=== PATIENT | female | born 1970 | race Caucasian/White ===

== ENCOUNTER 2020-06-25 11:13 | Observation (INO) | payer OTHER ==
--- NOTE | 2020-06-25 11:40 | EDM.PDOC ---
ED HPI GENERAL MEDICAL PROBLEM - General Chief Complaint: General Stated Complaint: WEAKNESS/DIZZY/LOSS OF VISION Time Seen by Provider: 06/25/20 11:18 Source of Information: Reports: Patient History Limitations: Reports: No Limitations - History of Present Illness INITIAL COMMENTS - FREE TEXT/NARRATIVE: HISTORY AND PHYSICAL: History of present illness: Patient is a 49-year-old female who presents to the emergency room with complaints of weakness, episodes where she feels a syncopal event coming on and generally feeling unwell over the past 2 days. She states she has had 3 syncopal events where she feels very dizzy and weak, her vision starts to "go out" and she is able to let her self down to the ground where she passes out briefly. Denies any head, neck, back or extremity pain. Patient denies any fever, chills, headache, syncope or near syncope. Denies any chest pain, back pain, shortness of breath or cough. Denies any abdominal pain, nausea, vomiting, diarrhea, constipation or dysuria. Has not noted any blood in urine or stool. No chance of , hysterectomy. Patient has been eating and drinking appropriately. Review of systems: As per history of present illness and below otherwise all systems reviewed and negative. Past medical history: As per history of present illness and as reviewed below otherwise noncontributory. Surgical history: As per history of present illness and as reviewed below otherwise noncontributory. Social history: See social history for further information Family history: As per history of present illness and as reviewed below otherwise noncontributory. Physical exam: General: Well developed and well nourished 49 year old female. Alert and orientated x 3. Nontoxic in appearance and in no acute distress. Vital signs are stable and have been reviewed by me. Nursing notes were reviewed. HEENT: Atraumatic, normocephalic, pupils equal and reactive bilaterally, negative for conjunctival pallor or scleral icterus, mucous membranes moist, TMs normal bilaterally, throat clear, neck supple, nontender, trachea midline. No drooling or trismus noted. No meningeal signs. No hot potato voice noted. Lungs: Clear to auscultation, breath sounds equal bilaterally, chest nontender. Normal work of breathing, no accessory muscles used. Heart: S1S2, regular rate and rhythm without overt murmur Abdomen: Soft, nondistended, nontender. Negative for masses or hepatosplenomegaly. Negative for costovertebral tenderness. Skin: Diaphoretic, pale, but intact and warm. No lesions or rashes noted. Hematologic: No petechiae or purpra. Mucosa appropriate color and normal nail bed color and refill. Extremities: Atraumatic, moves all extremities per self without difficulty or deficits, negative for cords or calf pain. Neurovascular unremarkable. Neuro: Awake, alert, oriented. Cranial nerves II through XII unremarkable. Cerebellum unremarkable. Motor and sensory unremarkable throughout. Exam nonfocal. Psychiatric: Mood and affect are appropriate. Normal thought process. Answering questions appropriately. Notes: While nursing staff was assisting patient into a wheelchair, patient states she feels near syncope with movement. Blood glucose is WNL, vitals remain stable. EKG shows sinus rhythm with rate of 92, no previous EKGs available. Negative head CT and chest x-ray. Decreased potassium, 3.1. Appears slightly dehydrated. Slightly elevated Lipase, 553. Patient does have an elevated d- dimer, PE rule out chest has been ordered. Orthostatic vital signs show no drop; remains slightly elevated. Denies any headache. CT chest shows no acute PE. Areas of minimal atelectasis versus scarring in the lungs. No consolidation. There is a 4 mm micro nodule in the left lower lobe. Pronounced fatty infiltration of the liver. Patient states she still feels general weakness and being unwell, will admit her for observation admission with telemetry. Dr. Thakkar was consulted on this case. She is agreeable to adm itting her for further care and management. Diagnostics: CBC, CMP, UA, Troponin, EKG, CXR, COVID, Head CT Therapeutics: IV fluids, K-Dur Impression: Syncope Hypokalemia Dehydration Plan: Observation admission to Med/Surg with telemetry Definitive disposition and diagnosis as appropriate pending reevaluation and review of above. Back Pain Score (Numeric/FACES): 5 - Related Data Allergies Allergy/AdvReac Type Severity Reaction Status Date / Time morphine Allergy Other Verified 06/25/20 16:50 Home Meds: Home Meds . [No Known Home Meds] 02/24/16 [History] Past Medical History - Past Surgical History HEENT Surgical History: Reports: Adenoidectomy, Tonsillectomy GI Surgical History: Reports: Cholecystectomy Other GI Surgeries/Procedures: gastric by pass Female Surgical History: Reports: Hysterectomy Social & Family History - Family History Family Medical History: Noncontributory ED ROS GENERAL - Review of Systems Review Of Systems: Comprehensive ROS is negative, except as noted in HPI. ED EXAM, GENERAL - Physical Exam Exam: See Below (See dictation) Course - Vital Signs Last Recorded V/S: Last Vital Signs Temp 98 F 06/25/20 20:00 Pulse 88 06/25/20 20:00 Resp 16 06/25/20 20:00 BP 130/80 06/25/20 21:02 Pulse Ox 97 06/25/20 20:00 Orthostatic Blood Pressure [ 162/108 Standing] Orthostatic Blood Pressure [ 142/100 Sitting] Orthostatic Blood Pressure [ 150/100 Supine] - Orders/Labs/Meds Orders: Active Orders 24 hr Category Date Time Status Admission Status [Patient Status] [ADT] Stat ADT 06/25/20 14:44 Active Blood Glucose Check, Bedside [RC] ONETIME Care 06/25/20 11:49 Active Cardiac Monitoring [RC] . DIRECTED Care 06/25/20 11:49 Active EKG Documentation Completion [RC] STAT Care 06/25/20 11:49 Active Sodium Chloride 0.9% [Saline Flush] Med 06/25/20 11:49 Active 10 ml FLUSH ASDIRECTED PRN Sodium Chloride 0.9% [Saline Flush] Med 06/25/20 11:49 Active 2.5 ml FLUSH ASDIRECTED PRN Saline Lock Insert [OM.PC] Stat Oth 06/25/20 11:49 Ordered Medication Orders Albuterol/Ipratropium (Duoneb 3.0-0.5 Mg/3 Ml) 3 ml NEB Q4HRRT PRN PRN Reason: Shortness Of Breath/wheezing Lactated Ringer's (Ringers, Lactated) 1,000 mls @ 125 mls/hr IV ASDIRECTED MARGARITO Last Admin: 06/25/20 21:09 Dose: 125 mls/hr Documented by: SHIRLEY Pantoprazole Sodium 40 mg/ (Sodium Chloride) 10 mls @ 300 mls/hr IV DAILY MARGARITO Ketorolac Tromethamine (Toradol) 15 mg IVPUSH Q6H PRN PRN Reason: Pain Stop: 06/30/20 18:21 Last Admin: 06/25/20 18:55 Dose: 15 mg Documented by: GIDEON Ondansetron HCl (Zofran) 4 mg IVPUSH Q4H PRN PRN Reason: Nausea/Vomiting Sodium Chloride (Saline Flush) 10 ml FLUSH ASDIRECTED PRN PRN Reason: Keep Vein Open Last Admin: 06/25/20 12:05 Dose: 10 ml Documented by: DIAMANTE Sodium Chloride (Saline Flush) 2.5 ml FLUSH ASDIRECTED PRN PRN Reason: Keep Vein Open Last Admin: 06/25/20 12:05 Dose: 2.5 ml Documented by: DIAMANTE Labs: Laboratory Tests 06/25/20 06/25/20 06/25/20 Range/Units 11:06 11:06 11:51 WBC 6.25 (4.0-11.0) K/uL RBC 4.36 (4.30-5.90) M/uL Hgb 14.8 (12.0-16.0) g/dL Hct 44.1 (36.0-46.0) % MCV 101.1 H (80.0-98.0) fL MCH 33.9 H (27.0-32.0) pg MCHC 33.6 (31.0-37.0) g/dL RDW Std Deviation 50.2 (28.0-62.0) fl RDW Coeff of Manish 13 (11.0-15.0) % Plt Count 207 (150-400) K/uL MPV 10.80 (7.40-12.00) fL Neut % (Auto) 75.1 (48.0-80.0) % Lymph % (Auto) 14.2 L (16.0-40.0) % [place] % (Auto) 9.4 (0.0-15.0) % Eos % (Auto) 0.8 (0.0-7.0) % Baso % (Auto) 0.5 (0.0-1.5) % Neut # (Auto) 4.7 (1.4-5.7) K/uL Lymph # (Auto) 0.9 (0.6-2.4) K/uL [place] # (Auto) 0.6 (0.0-0.8) K/uL Eos # (Auto) 0.1 (0.0-0.7) K/uL Baso # (Auto) 0.0 (0.0-0.1) K/uL Nucleated RBC % 0.0 /100WBC Nucleated RBCs # 0 K/uL D-Dimer, Quantitative (0.0-0.50) mg/L FEU Sodium 135 L (136-145) mmol/L Potassium 3.1 L (3.5-5.1) mmol/L Chloride 95 L (98-107) mmol/L Carbon Dioxide 27.7 (21.0-32.0) mmol/L BUN 7 (7.0-18.0) mg/dL Creatinine 1.2 H (0.6-1.0) mg/dL Est Cr Clr Drug Dosing 52.15 mL/min Estimated GFR (MDRD) 48.2 ml/min Glucose 135 H (74-106) mg/dL POC Glucose 137 H (60-110) mg/dL Calcium 9.7 (8.5-10.1) mg/dL Total Bilirubin 1.2 H (0.2-1.0) mg/dL AST 166 H (15-37) IU/L ALT 187 H (14-63) IU/L Alkaline Phosphatase 120 H (46-116) U/L Troponin I < 0.050 (0.000-0.056) ng/mL Total Protein 8.7 H (6.4-8.2) g/dL Albumin 4.6 (3.4-5.0) g/dL Globulin 4.1 H (2.6-4.0) g/dL Albumin/Globulin Ratio 1.1 (0.9-1.6) Lipase 553 H (73-393) U/L SARS-CoV-2 RNA (GAYLA) (NEGATIVE) 06/25/20 06/25/20 Range/Units 12:03 13:00 WBC (4.0-11.0) K/uL RBC (4.30-5.90) M/uL Hgb (12.0-16.0) g/dL Hct (36.0-46.0) % MCV (80.0-98.0) fL MCH (27.0-32.0) pg MCHC (31.0-37.0) g/dL RDW Std Deviation (28.0-62.0) fl RDW Coeff of Manish (11.0-15.0) % Plt Count (150-400) K/uL MPV (7.40-12.00) fL Neut % (Auto) (48.0-80.0) % Lymph % (Auto) (16.0-40.0) % [place] % (Auto) (0.0-15.0) % Eos % (Auto) (0.0-7.0) % Baso % (Auto) (0.0-1.5) % Neut # (Auto) (1.4-5.7) K/uL Lymph # (Auto) (0.6-2.4) K/uL [place] # (Auto) (0.0-0.8) K/uL Eos # (Auto) (0.0-0.7) K/uL Baso # (Auto) (0.0-0.1) K/uL Nucleated RBC % /100WBC Nucleated RBCs # K/uL D-Dimer, Quantitative 1.05 H (0.0-0.50) mg/L FEU Sodium (136-145) mmol/L Potassium (3.5-5.1) mmol/L Chloride (98-107) mmol/L Carbon Dioxide (21.0-32.0) mmol/L BUN (7.0-18.0) mg/dL Creatinine (0.6-1.0) mg/dL Est Cr Clr Drug Dosing mL/min Estimated GFR (MDRD) ml/min Glucose (74-106) mg/dL POC Glucose (60-110) mg/dL Calcium (8.5-10.1) mg/dL Total Bilirubin (0.2-1.0) mg/dL AST (15-37) IU/L ALT (14-63) IU/L Alkaline Phosphatase (46-116) U/L Troponin I (0.000-0.056) ng/mL Total Protein (6.4-8.2) g/dL Albumin (3.4-5.0) g/dL Globulin (2.6-4.0) g/dL Albumin/Globulin Ratio (0.9-1.6) Lipase (73-393) U/L SARS-CoV-2 RNA (GAYLA) NEGATIVE (NEGATIVE) Meds: Medications Generic Name Dose Route Start Last Admin Trade Name Freq PRN Reason Stop Dose Admin Albuterol/Ipratropium 3 ml 06/25/20 15:36 Duoneb 3.0-0.5 Mg/3 Ml NEB Q4HRRT PRN Shortness Of Breath/wheezing Lactated Ringer's 1,000 mls @ 125 mls/hr 06/25/20 15:45 06/25/20 21:09 Ringers, Lactated IV 125 mls/hr ASDIRECTED MARGARITO Administration Pantoprazole Sodium 40 mg/ 10 mls @ 300 mls/hr 06/26/20 09:00 Sodium Chloride IV DAILY MARGARITO Ketorolac Tromethamine 15 mg 06/25/20 18:21 06/25/20 18:55 Toradol IVPUSH 06/30/20 18:21 15 mg Q6H PRN Administration Pain Ondansetron HCl 4 mg 06/25/20 18:01 Zofran IVPUSH Q4H PRN Nausea/Vomiting Sodium Chloride 10 ml 06/25/20 11:49 06/25/20 12:05 Saline Flush FLUSH 10 ml ASDIRECTED PRN Administration Keep Vein Open Sodium Chloride 2.5 ml 06/25/20 11:49 06/25/20 12:05 Saline Flush FLUSH 2.5 ml ASDIRECTED PRN Administration Keep Vein Open Discontinued Medications Generic Name Dose Route Start Last Admin Trade Name Freq PRN Reason Stop Dose Admin Acetaminophen 650 mg 06/25/20 15:36 Tylenol PO Q4H PRN Pain (Mild 1-3)/fever Sodium Chloride 1,000 mls @ 999 mls/hr 06/25/20 11:48 06/25/20 12:05 Normal Saline IV 06/25/20 12:48 999 mls/hr STAT ONE Administration Sodium Chloride 1,000 mls @ 150 mls/hr 06/25/20 13:59 06/25/20 15:19 Normal Saline IV 06/25/20 20:38 150 mls/hr STAT ONE Administration Iopamidol 70 ml 06/25/20 14:09 06/25/20 14:10 Isovue-370 (76%) IVPUSH 06/25/20 14:10 70 ml ONETIME ONE Administration Morphine Sulfate 1 mg 06/25/20 17:38 Morphine IVPUSH Q6H PRN Pain Potassium Chloride 40 meq 06/25/20 14:55 06/25/20 15:18 Klor-Con M20 PO 06/25/20 14:56 40 meq ONETIME ONE Administration Departure - Departure Time of Disposition: 14:54 Disposition: Refer to Observation Clinical Impression: Hypokalemia, Dehydration Syncope Qualifiers: Syncope type: unspecified Qualified Code(s): R55 - Syncope and collapse - Discharge Information Sepsis Event Note (ED) - Focused Exam Vital Signs: Vital Signs Temp Pulse Resp BP Pulse Ox 06/25/20 14:44 99 150/100 H 99 06/25/20 13:30 107 H 100 06/25/20 12:07 97.0 F 111 H 20 172/110 H 99 06/25/20 11:42 74 124/90 99 - My Orders Last 24 Hours: My Active Orders 06/25/20 11:49 Blood Glucose Check, Bedside [RC] ONETIME Cardiac Monitoring [RC] . DIRECTED EKG Documentation Completion [RC] STAT Sodium Chloride 0.9% [Saline Flush] 10 ml FLUSH ASDIRECTED PRN Sodium Chloride 0.9% [Saline Flush] 2.5 ml FLUSH ASDIRECTED PRN Saline Lock Insert [OM.PC] Stat 06/25/20 14:44 Admission Status [Patient Status] [ADT] Stat - Assessment/Plan Last 24 Hours: My Active Orders 06/25/20 11:49 Blood Glucose Check, Bedside [RC] ONETIME Cardiac Monitoring [RC] . DIRECTED EKG Documentation Completion [RC] STAT Sodium Chloride 0.9% [Saline Flush] 10 ml FLUSH ASDIRECTED PRN Sodium Chloride 0.9% [Saline Flush] 2.5 ml FLUSH ASDIRECTED PRN Saline Lock Insert [OM.PC] Stat 06/25/20 14:44 Admission Status [Patient Status] [ADT] Stat
[2020-06-25] MEDS ORDERED: Sodium Chloride 0.9% 1,000 ML IV ONE ×2 (11:48→13:59)
[2020-06-25] MEDS ORDERED: Sodium Chloride 0.9% 10 ML Syringe FLUSH PRN (11:49)
[2020-06-25] MEDS ORDERED: Sodium Chloride 0.9% 2.5 ML Syringe FLUSH PRN (11:49)
--- NOTE | 2020-06-25 12:13 | PCM.SN.2 ---
EKG INTERPRETATION EKG Date: 06/25/20 Time: 11:45 Rhythm: NSR Rate (Beats/Min): 92 [place]: Normal P-Wave: Present QRS: Normal ST-T: Normal QT: Normal
[2020-06-25 12:37] LABS: BLOOD UREA NITROGEN,BUN 7 mg/dL (7.0-18.0); CARBON DIOXIDE,CO2 27.7 mmol/L (21.0-32.0); CHLORIDE,CL 95 mmol/L (98-107); GLUCOSE RANDOM 135 mg/dL (74-106); LIPASE 553 U/L (73-393); POTASSIUM,K 3.1 mmol/L (3.5-5.1); SODIUM,NA 135 mmol/L (136-145)
--- NOTE | 2020-06-25 12:58 | CR ---
INDICATION: Syncope TECHNIQUE: Chest 1 view. COMPARISON: None FINDINGS: Cardiovascular and mediastinum: Heart size and vasculature are normal in caliber and appearance. Mediastinum is within normal limits. Lungs and pleural space: Lungs are clear. No pleural effusion. No pneumothorax. Bones and soft tissues: No acute findings. IMPRESSION: No acute pulmonary abnormality. Dictated by Laly Lopez MD @ Jun 25 2020 12:55PM Signed by Dr. Laly Lopez @ Jun 25 2020 12:56PM
--- NOTE | 2020-06-25 13:00 | CT ---
INDICATION: Syncope, dizziness, vision changes. TECHNIQUE: CT Head without contrast. COMPARISON: None FINDINGS: Ventricles and sulci are normal in size and configuration. No extra axial collection. No acute intracranial hemorrhage. No mass effect or edema. No CT evidence of acute, large territorial infarction. Visualized paranasal sinuses and mastoid air cells are well aerated. Calvarium is unremarkable. IMPRESSION: No acute intracranial hemorrhage or mass effect. Please note that all CT scans at this facility use dose modulation, iterative reconstruction, and/or weight-based dosing when appropriate to reduce radiation dose to as low as reasonably achievable. Dictated by Laly Lopez MD @ Jun 25 2020 12:56PM Signed by Dr. Laly Lopez @ Jun 25 2020 12:58PM
[2020-06-25] MEDS ORDERED: Iopamidol 755 Mg/ML 100 ML Bottle IVPUSH ONE (14:09)
--- NOTE | 2020-06-25 14:34 | CT ---
HISTORY: Elevated D-dimer, syncope. TECHNIQUE: Intravenous contrast enhanced CT of the chest. 70 mL of Isovue-370 intravenous contrast administered. COMPARISON: Chest radiograph 06/25/2020. FINDINGS: There is no thoracic aortic aneurysm or dissection. There is no acute pulmonary embolism. No pericardial effusion. No enlarged mediastinal or hilar lymph nodes. - Areas of minor atelectasis and/or scarring within the lungs. No consolidation. 4 mm nodule within the left lateral costophrenic angle on axial image #78 of series 402. There is no pleural effusion or pneumothorax. - Pronounced fatty infiltration of the liver. Changes of gastric bypass. - Mild degenerative changes of the spine. IMPRESSION: 1. No acute pulmonary embolism. 2. Areas of minimal atelectasis versus scarring within the lungs. No consolidation. 3. 4 mm micro nodule left lower lobe. If the patient is high risk, consider a [address] to determine stability. 4. Pronounced fatty infiltration of the liver. 5. Changes of prior gastric bypass. Dictated by Jose Smith MD @ 06/25/2020 2:32:56 PM Please note that all CT scans at this facility use dose modulation, iterative reconstruction, and/or weight-based dosing when appropriate to reduce radiation dose to as low as reasonably achievable. Dictated by: Jose Smith MD @ 06/25/2020 14:33:09 (Electronically Signed)
[2020-06-25] MEDS ORDERED: Potassium Chloride 20 MEQ Tab.ER PO ONE (14:55)
[2020-06-25] MEDS ORDERED: Acetaminophen 325 MG Tab PO PRN (15:36)
[2020-06-25] MEDS ORDERED: Albuterol/Ipratropium 3.0-0.5 MG/3 ML Neb Soln NEB PRN (15:36)
--- NOTE | 2020-06-25 15:38 | PCM.HP.2 ---
H&P History of Present Illness - General Date of Service: 06/25/20 Admit Problem/Dx: Admission Diagnosis/Problem Admission Diagnosis/Problem Syncope - History of Present Illness Initial Comments - Free Text/Narative: Patient is a 49-year-old female who presents to the emergency room with complaints of weakness, syncopal episodes for past 2 days. She states she has had 3 syncopal events where she felt very dizzy and weak, her vision starts to black out and she is able to let her self down to the ground where she passes out briefly for few minutes Denies any head, neck, back or extremity pain. Patient denies any fever, chills, headache, syncope or near syncope. Denies any chest pain, back pain, shortness of breath or cough. Has not noted any blood in urine or stool. No chance of , hysterectomy. Shr states she hasnt been eating properly due to Nausea. Work up in ER reveled: Negative head CT and chest x-ray, normal troponin, EKG unremarkable, Decreased potassium, 3.1. Slightly elevated Lipase, 553, abnormal LFTs,. Patient does have an elevated d-dimer, CT chest shows no acute PE. Areas of minimal atelectasis versus scarring in the lungs. No consolidation. There is a 4 mm micro nodule in the left lower lobe. Pronounced fatty infiltration of the liver. Patient received IV fluids and continued to feel weak so was admitted for further management. - Related Data Allergies/Adverse Reactions: Allergies Allergy/AdvReac Type Severity Reaction Status Date / Time morphine Allergy Other Verified 06/25/20 16:50 Home Medications: Home Meds . [No Known Home Meds] 02/24/16 [History] Past Medical History - Infectious Disease History Infectious Disease History: Reports: Chicken Pox - Past Surgical History HEENT Surgical History: Reports: Adenoidectomy, Tonsillectomy GI Surgical History: Reports: Cholecystectomy Other GI Surgeries/Procedures: gastric by pass Female Surgical History: Reports: Hysterectomy Social & Family History - Family History Family Medical History: Noncontributory - Tobacco Use Smoking Status *Q: Never Smoker - Recreational Drug Use Recreational Drug Use: No H&P Review of Systems - Review of Systems: Review Of Systems: See Below General: Reports: Malaise, Weakness, Fatigue. Denies: Fever, Chills HEENT: Reports: Dysphasia, Ear Pain. Denies: Eye Pain Pulmonary: Reports: Shortness of Breath, Wheezing Cardiovascular: Reports: Chest Pain, Palpitations, Dyspnea on Exertion, Lighthea dedness, Syncope Gastrointestinal: Reports: Anorexia. Denies: Abdominal Pain, Hematemesis, Hematochezia, Nausea, Vomiting Genitourinary: Denies: Frequency, Burning, Pain Musculoskeletal: Denies: Shoulder Pain, Arm Pain, Back Pain Exam - Exam Exam: See Below - Vital Signs Vital Signs: Last Vital Signs Temp 36.1 C 06/25/20 12:07 Pulse 99 06/25/20 14:44 Resp 20 06/25/20 12:07 BP 150/100 H 06/25/20 14:44 Pulse Ox 99 06/25/20 14:44 Orthostatic Blood Pressure [ 162/108 Standing] Orthostatic Blood Pressure [ 142/100 Sitting] Orthostatic Blood Pressure [ 150/100 Supine] Weight: 72.575 kg - Exam General: Alert, Oriented HEENT: Conjunctiva Clear Neck: Supple, Trachea Midline Lungs: Clear to Auscultation, Normal Respiratory Effort Cardiovascular: Regular Rate, Regular Rhythm GI/Abdominal Exam: Normal Bowel Sounds, Soft, Non-Tender - Patient Data Lab Results Last 24 hrs: Laboratory Results - last 24 hr 06/25/20 06/25/20 06/25/20 Range/Units 11:06 11:06 11:51 WBC 6.25 (4.0-11.0) K/uL RBC 4.36 (4.30-5.90) M/uL Hgb 14.8 (12.0-16.0) g/dL Hct 44.1 (36.0-46.0) % MCV 101.1 H (80.0-98.0) fL MCH 33.9 H (27.0-32.0) pg MCHC 33.6 (31.0-37.0) g/dL RDW Std Deviation 50.2 (28.0-62.0) fl RDW Coeff of Manish 13 (11.0-15.0) % Plt Count 207 (150-400) K/uL MPV 10.80 (7.40-12.00) fL Neut % (Auto) 75.1 (48.0-80.0) % Lymph % (Auto) 14.2 L (16.0-40.0) % [place] % (Auto) 9.4 (0.0-15.0) % Eos % (Auto) 0.8 (0.0-7.0) % Baso % (Auto) 0.5 (0.0-1.5) % Neut # (Auto) 4.7 (1.4-5.7) K/uL Lymph # (Auto) 0.9 (0.6-2.4) K/uL [place] # (Auto) 0.6 (0.0-0.8) K/uL Eos # (Auto) 0.1 (0.0-0.7) K/uL Baso # (Auto) 0.0 (0.0-0.1) K/uL Nucleated RBC % 0.0 /100WBC Nucleated RBCs # 0 K/uL D-Dimer, Quantitative (0.0-0.50) mg/L FEU Sodium 135 L (136-145) mmol/L Potassium 3.1 L (3.5-5.1) mmol/L Chloride 95 L (98-107) mmol/L Carbon Dioxide 27.7 (21.0-32.0) mmol/L BUN 7 (7.0-18.0) mg/dL Creatinine 1.2 H (0.6-1.0) mg/dL Est Cr Clr Drug Dosing 52.15 mL/min Estimated GFR (MDRD) 48.2 ml/min Glucose 135 H (74-106) mg/dL POC Glucose 137 H (60-110) mg/dL Calcium 9.7 (8.5-10.1) mg/dL Total Bilirubin 1.2 H (0.2-1.0) mg/dL AST 166 H (15-37) IU/L ALT 187 H (14-63) IU/L Alkaline Phosphatase 120 H (46-116) U/L Troponin I < 0.050 (0.000-0.056) ng/mL Total Protein 8.7 H (6.4-8.2) g/dL Albumin 4.6 (3.4-5.0) g/dL Globulin 4.1 H (2.6-4.0) g/dL Albumin/Globulin Ratio 1.1 (0.9-1.6) Lipase 553 H (73-393) U/L SARS-CoV-2 RNA (GAYLA) (NEGATIVE) 06/25/20 06/25/20 Range/Units 12:03 13:00 WBC (4.0-11.0) K/uL RBC (4.30-5.90) M/uL Hgb (12.0-16.0) g/dL Hct (36.0-46.0) % MCV (80.0-98.0) fL MCH (27.0-32.0) pg MCHC (31.0-37.0) g/dL RDW Std Deviation (28.0-62.0) fl RDW Coeff of Manish (11.0-15.0) % Plt Count (150-400) K/uL MPV (7.40-12.00) fL Neut % (Auto) (48.0-80.0) % Lymph % (Auto) (16.0-40.0) % [place] % (Auto) (0.0-15.0) % Eos % (Auto) (0.0-7.0) % Baso % (Auto) (0.0-1.5) % Neut # (Auto) (1.4-5.7) K/uL Lymph # (Auto) (0.6-2.4) K/uL [place] # (Auto) (0.0-0.8) K/uL Eos # (Auto) (0.0-0.7) K/uL Baso # (Auto) (0.0-0.1) K/uL Nucleated RBC % /100WBC Nucleated RBCs # K/uL D-Dimer, Quantitative 1.05 H (0.0-0.50) mg/L FEU Sodium (136-145) mmol/L Potassium (3.5-5.1) mmol/L Chloride (98-107) mmol/L Carbon Dioxide (21.0-32.0) mmol/L BUN (7.0-18.0) mg/dL Creatinine (0.6-1.0) mg/dL Est Cr Clr Drug Dosing mL/min Estimated GFR (MDRD) ml/min Glucose (74-106) mg/dL POC Glucose (60-110) mg/dL Calcium (8.5-10.1) mg/dL Total Bilirubin (0.2-1.0) mg/dL AST (15-37) IU/L ALT (14-63) IU/L Alkaline Phosphatase (46-116) U/L Troponin I (0.000-0.056) ng/mL Total Protein (6.4-8.2) g/dL Albumin (3.4-5.0) g/dL Globulin (2.6-4.0) g/dL Albumin/Globulin Ratio (0.9-1.6) Lipase (73-393) U/L SARS-CoV-2 RNA (GAYLA) NEGATIVE (NEGATIVE) Result Diagrams: 06/25/20 11:06 06/25/20 11:06 Sepsis Event Note - Evaluation Sepsis Screening Result: No Definite Risk - Focused Exam Vital Signs: Vital Signs Temp Pulse Resp BP Pulse Ox 06/25/20 14:44 99 150/100 H 99 06/25/20 13:30 107 H 100 06/25/20 12:07 36.1 C 111 H 20 172/110 H 99 06/25/20 11:42 74 124/90 99 - Problem List (1) Lung nodule SNOMED Code(s): 240012026 ICD Code: R91.1 - SOLITARY PULMONARY NODULE Status: Acute Current Visit: Yes (2) Hypokalemia SNOMED Code(s): 59702273 ICD Code: E87.6 - HYPOKALEMIA Status: Acute Current Visit: Yes (3) Syncope SNOMED Code(s): 730498987 ICD Code: R55 - SYNCOPE AND COLLAPSE Status: Acute Current Visit: Yes Qualifiers: Syncope type: unspecified Qualified Code(s): R55 - Syncope and collapse (4) Transaminitis SNOMED Code(s): 600408551, 128300353 ICD Code: R74.01 - ELEVATION OF LEVELS OF LIVER TRANSAMINASE LEVELS Status: Acute Current Visit: Yes Problem List Initiated/Reviewed/Updated: Yes Orders Last 24hrs: Active Orders 24 hr Category Date Time Status Admission Status [Patient Status] [ADT] Stat ADT 06/25/20 14:44 Active Ambulate [RC] ASDIRECTED Care 06/25/20 15:36 Ordered Antiembolic Devices [RC] PER UNIT ROUTINE Care 06/25/20 15:37 Ordered Blood Glucose Check, Bedside [RC] ONETIME Care 06/25/20 11:49 Active Cardiac Monitoring [RC] . DIRECTED Care 06/25/20 11:49 Active EKG Documentation Completion [RC] STAT Care 06/25/20 11:49 Active Oxygen Therapy [RC] PRN Care 06/25/20 15:36 Ordered RT Aerosol Therapy [RC] ASDIRECTED Care 06/25/20 15:37 Ordered VTE/DVT Education [RC] PER UNIT ROUTINE Care 06/25/20 15:36 Ordered Vital Signs [RC] Q4H Care 06/25/20 15:36 Ordered TROPONIN I [CHEM] Routine Lab 06/25/20 15:37 Ordered UA RFX [place] AND CULT IF INDIC [URIN] Stat Lab 06/25/20 11:49 Ordered Acetaminophen [TylenoL] Med 06/25/20 15:36 Ordered 650 mg PO Q4H PRN Albuterol/Ipratropium [DuoNeb 3.0-0.5 MG/3 ML] Med 06/25/20 15:36 Ordered 3 ml NEB Q4HRRT PRN Lactated Ringers @ 125 MLS/HR(1000ml) Med 06/25/20 15:45 Ordered Lactated Ringers [Ringers, Lactated] 1,000 ml IV ASDIRECTED Sodium Chloride 0.9% [Normal Saline] 1,000 ml Med 06/25/20 13:59 Active IV STAT Sodium Chloride 0.9% [Saline Flush] Med 06/25/20 11:49 Active 10 ml FLUSH ASDIRECTED PRN Sodium Chloride 0.9% [Saline Flush] Med 06/25/20 11:49 Active 2.5 ml FLUSH ASDIRECTED PRN Saline Lock Insert [OM.PC] Stat Oth 06/25/20 11:49 Ordered Sequential Compression Device [OM.PC] Per Unit Routine Oth 06/25/20 15:37 Ordered Resuscitation Status Routine Resus Stat 06/25/20 15:36 Ordered Medication Orders Acetaminophen (Tylenol) 650 mg PO Q4H PRN PRN Reason: Pain (Mild 1-3)/fever Albuterol/Ipratropium (Duoneb 3.0-0.5 Mg/3 Ml) 3 ml NEB Q4HRRT PRN PRN Reason: Shortness Of Breath/wheezing Sodium Chloride (Normal Saline) 1,000 mls @ 150 mls/hr IV STAT ONE Stop: 06/25/20 20:38 Last Admin: 06/25/20 15:19 Dose: 150 mls/hr Documented by: JAMISON Lactated Ringer's (Ringers, Lactated) 1,000 mls @ 125 mls/hr IV ASDIRECTED MARGARITO Sodium Chloride (Saline Flush) 10 ml FLUSH ASDIRECTED PRN PRN Reason: Keep Vein Open Last Admin: 06/25/20 12:05 Dose: 10 ml Documented by: DIAMANTE Sodium Chloride (Saline Flush) 2.5 ml FLUSH ASDIRECTED PRN PRN Reason: Keep Vein Open Last Admin: 06/25/20 12:05 Dose: 2.5 ml Documented by: DIAMANTE Assessment/Plan Comment:: 49 y/o F admitted for syncope, generalized weakness start ivf hydration keep npo for now secondary to n/v trend troponin duonebs as needed scd for dvt ppx monitor and replete electrolytes as needed
[2020-06-25] MEDS ORDERED: Morphine 2 MG/ML SYRINGE IVPUSH PRN (17:38)
[2020-06-25] MEDS ORDERED: Ondansetron 4 MG/2 ML SDV IVPUSH PRN (18:01)
[2020-06-25] MEDS: Ketorolac 15 MG/ML SDV IVPUSH PRN (18:55)
[2020-06-25] MEDS: Lactated Ringers 1,000 ML IV SCH (21:09)
[2020-06-26] MEDS: Lactated Ringers 1,000 ML IV SCH ×3 (04:54→22:39)
[2020-06-26] MEDS: Pantoprazole 40 MG in Sodium Chloride 0.9% 10 ML IV SCH (09:03)
[2020-06-26 11:05] LABS: BLOOD UREA NITROGEN,BUN 4 mg/dL (7.0-18.0); CARBON DIOXIDE,CO2 23.6 mmol/L (21.0-32.0); CHLORIDE,CL 100 mmol/L (98-107); GLUCOSE RANDOM 91 mg/dL (74-106); POTASSIUM,K 3.4 mmol/L (3.5-5.1); SODIUM,NA 136 mmol/L (136-145)
[2020-06-26] MEDS: Ketorolac 15 MG/ML SDV IVPUSH PRN ×2 (12:36→20:12)
[2020-06-26] MEDS ORDERED: Potassium Chloride Riders 40 MEQ in Premix Bag 1 BAG IV ONE ×2 (12:42→16:00)
[2020-06-26] MEDS ORDERED: Magnesium Sulfate/Water 4 GM in Premix Bag 1 BAG IV ONE (12:42)
--- NOTE | 2020-06-26 12:46 | PCM.PN ---
- General Info Date of Service: 06/26/20 Admission Dx/Problem (Free Text): Admission Diagnosis/Problem Admission Diagnosis/Problem Syncope Subjective Update: seen at bedside, says she was doing really well until this am when she felt like she will pass out while trying to get out of bed, tried eating, didn't tolerate - Review of Systems General: Reports: Weakness, Fatigue, Malaise. Denies: Fever, Chills Pulmonary: Denies: Shortness of Breath, Pleuritic Chest Pain Cardiovascular: Denies: Chest Pain, Palpitations, Dyspnea on Exertion Gastrointestinal: Reports: Nausea, Vomiting. Denies: Abdominal Pain, Constipation, Decreased Appetite, Diarrhea Genitourinary: Denies: Dysuria, Frequency, Burning, Pain Musculoskeletal: Denies: Neck Pain, Shoulder Pain, Arm Pain Skin: Denies: Cyanosis, Jaundice, Mottled - Patient Data Vitals - Most Recent: Last Vital Signs Temp 35.7 C L 06/26/20 11:45 Pulse 82 06/26/20 11:45 Resp 16 06/26/20 11:45 BP 147/96 H 06/26/20 11:45 Pulse Ox 97 06/26/20 11:45 Orthostatic Blood Pressure [ 162/108 Standing] Orthostatic Blood Pressure [ 142/100 Sitting] Orthostatic Blood Pressure [ 150/100 Supine] Weight - Most Recent: 72.575 kg I&O - Last 24 Hours: Intake & Output 06/25/20 06/26/20 06/26/20 22:59 06:59 14:59 Intake Total 25 Output Total 900 Balance -875 Lab Results Last 24 Hours: Laboratory Results - last 24 hr 06/25/20 06/25/20 06/25/20 Range/Units 11:51 12:03 13:00 WBC (4.0-11.0) K/uL RBC (4.30-5.90) M/uL Hgb (12.0-16.0) g/dL Hct (36.0-46.0) % MCV (80.0-98.0) fL MCH (27.0-32.0) pg MCHC (31.0-37.0) g/dL RDW Std Deviation (28.0-62.0) fl RDW Coeff of Manish (11.0-15.0) % Plt Count (150-400) K/uL MPV (7.40-12.00) fL Neut % (Auto) (48.0-80.0) % Lymph % (Auto) (16.0-40.0) % [place] % (Auto) (0.0-15.0) % Eos % (Auto) (0.0-7.0) % Baso % (Auto) (0.0-1.5) % Neut # (Auto) (1.4-5.7) K/uL Lymph # (Auto) (0.6-2.4) K/uL [place] # (Auto) (0.0-0.8) K/uL Eos # (Auto) (0.0-0.7) K/uL Baso # (Auto) (0.0-0.1) K/uL Nucleated RBC % /100WBC Nucleated RBCs # K/uL D-Dimer, Quantitative 1.05 H (0.0-0.50) mg/L FEU Sodium (136-145) mmol/L Potassium (3.5-5.1) mmol/L Chloride (98-107) mmol/L Carbon Dioxide (21.0-32.0) mmol/L BUN (7.0-18.0) mg/dL Creatinine (0.6-1.0) mg/dL Est Cr Clr Drug Dosing mL/min Estimated GFR (MDRD) ml/min Glucose (74-106) mg/dL POC Glucose 137 H (60-110) mg/dL Calcium (8.5-10.1) mg/dL Phosphorus (2.6-4.7) mg/dL Magnesium (1.8-2.4) mg/dL Total Bilirubin (0.2-1.0) mg/dL AST (15-37) IU/L ALT (14-63) IU/L Alkaline Phosphatase (46-116) U/L Troponin I (0.000-0.056) ng/mL Total Protein (6.4-8.2) g/dL Albumin (3.4-5.0) g/dL Globulin (2.6-4.0) g/dL Albumin/Globulin Ratio (0.9-1.6) Urine Color Urine Appearance Urine pH (5.0-8.0) Ur Specific [place] (1.001-1.035) Urine Protein (NEGATIVE) mg/dL Urine Glucose (UA) (NEGATIVE) mg/dL Urine Ketones (NEGATIVE) mg/dL Urine Occult Blood (NEGATIVE) Urine Nitrite (NEGATIVE) Urine Bilirubin (NEGATIVE) Urine Urobilinogen (<2.0) EU/dL Ur Leukocyte Esterase (NEGATIVE) SARS-CoV-2 RNA (GAYLA) NEGATIVE (NEGATIVE) 06/25/20 06/25/20 06/26/20 Range/Units 16:02 17:30 00:42 WBC (4.0-11.0) K/uL RBC (4.30-5.90) M/uL Hgb (12.0-16.0) g/dL Hct (36.0-46.0) % MCV (80.0-98.0) fL MCH (27.0-32.0) pg MCHC (31.0-37.0) g/dL RDW Std Deviation (28.0-62.0) fl RDW Coeff of Manish (11.0-15.0) % Plt Count (150-400) K/uL MPV (7.40-12.00) fL Neut % (Auto) (48.0-80.0) % Lymph % (Auto) (16.0-40.0) % [place] % (Auto) (0.0-15.0) % Eos % (Auto) (0.0-7.0) % Baso % (Auto) (0.0-1.5) % Neut # (Auto) (1.4-5.7) K/uL Lymph # (Auto) (0.6-2.4) K/uL [place] # (Auto) (0.0-0.8) K/uL Eos # (Auto) (0.0-0.7) K/uL Baso # (Auto) (0.0-0.1) K/uL Nucleated RBC % /100WBC Nucleated RBCs # K/uL D-Dimer, Quantitative (0.0-0.50) mg/L FEU Sodium (136-145) mmol/L Potassium (3.5-5.1) mmol/L Chloride (98-107) mmol/L Carbon Dioxide (21.0-32.0) mmol/L BUN (7.0-18.0) mg/dL Creatinine (0.6-1.0) mg/dL Est Cr Clr Drug Dosing mL/min Estimated GFR (MDRD) ml/min Glucose (74-106) mg/dL POC Glucose 84 (60-110) mg/dL Calcium (8.5-10.1) mg/dL Phosphorus (2.6-4.7) mg/dL Magnesium (1.8-2.4) mg/dL Total Bilirubin (0.2-1.0) mg/dL AST (15-37) IU/L ALT (14-63) IU/L Alkaline Phosphatase (46-116) U/L Troponin I < 0.050 (0.000-0.056) ng/mL Total Protein (6.4-8.2) g/dL Albumin (3.4-5.0) g/dL Globulin (2.6-4.0) g/dL Albumin/Globulin Ratio (0.9-1.6) Urine Color YELLOW Urine Appearance CLEAR Urine pH 8.5 H (5.0-8.0) Ur Specific [place] 1.015 (1.001-1.035) Urine Protein NEGATIVE (NEGATIVE) mg/dL Urine Glucose (UA) NEGATIVE (NEGATIVE) mg/dL Urine Ketones 15 H (NEGATIVE) mg/dL Urine Occult Blood NEGATIVE (NEGATIVE) Urine Nitrite NEGATIVE (NEGATIVE) Urine Bilirubin NEGATIVE (NEGATIVE) Urine Urobilinogen 0.2 (<2.0) EU/dL Ur Leukocyte Esterase NEGATIVE (NEGATIVE) SARS-CoV-2 RNA (GAYLA) (NEGATIVE) 06/26/20 06/26/20 06/26/20 Range/Units 06:21 10:35 10:35 WBC 3.79 L (4.0-11.0) K/uL RBC 3.83 L (4.30-5.90) M/uL Hgb 12.6 (12.0-16.0) g/dL Hct 38.8 (36.0-46.0) % MCV 101.3 H (80.0-98.0) fL MCH 32.9 H (27.0-32.0) pg MCHC 32.5 (31.0-37.0) g/dL RDW Std Deviation 49.2 (28.0-62.0) fl RDW Coeff of Manish 13 (11.0-15.0) % Plt Count 165 (150-400) K/uL MPV 10.50 (7.40-12.00) fL Neut % (Auto) 59.2 (48.0-80.0) % Lymph % (Auto) 27.4 (16.0-40.0) % [place] % (Auto) 10.0 (0.0-15.0) % Eos % (Auto) 2.9 (0.0-7.0) % Baso % (Auto) 0.5 (0.0-1.5) % Neut # (Auto) 2.2 (1.4-5.7) K/uL Lymph # (Auto) 1.0 (0.6-2.4) K/uL [place] # (Auto) 0.4 (0.0-0.8) K/uL Eos # (Auto) 0.1 (0.0-0.7) K/uL Baso # (Auto) 0.0 (0.0-0.1) K/uL Nucleated RBC % 0.0 /100WBC Nucleated RBCs # 0 K/uL D-Dimer, Quantitative (0.0-0.50) mg/L FEU Sodium 136 (136-145) mmol/L Potassium 3.4 L (3.5-5.1) mmol/L Chloride 100 (98-107) mmol/L Carbon Dioxide 23.6 (21.0-32.0) mmol/L BUN 4 L (7.0-18.0) mg/dL Creatinine 0.7 (0.6-1.0) mg/dL Est Cr Clr Drug Dosing 89.40 mL/min Estimated GFR (MDRD) > 60.0 ml/min Glucose 91 (74-106) mg/dL POC Glucose 92 (60-110) mg/dL Calcium 8.7 (8.5-10.1) mg/dL Phosphorus 2.9 (2.6-4.7) mg/dL Magnesium 1.3 L (1.8-2.4) mg/dL Total Bilirubin 1.0 (0.2-1.0) mg/dL AST 88 H (15-37) IU/L ALT 126 H (14-63) IU/L Alkaline Phosphatase 88 (46-116) U/L Troponin I (0.000-0.056) ng/mL Total Protein 6.8 (6.4-8.2) g/dL Albumin 3.5 (3.4-5.0) g/dL Globulin 3.3 (2.6-4.0) g/dL Albumin/Globulin Ratio 1.1 (0.9-1.6) Urine Color Urine Appearance Urine pH (5.0-8.0) Ur Specific [place] (1.001-1.035) Urine Protein (NEGATIVE) mg/dL Urine Glucose (UA) (NEGATIVE) mg/dL Urine Ketones (NEGATIVE) mg/dL Urine Occult Blood (NEGATIVE) Urine Nitrite (NEGATIVE) Urine Bilirubin (NEGATIVE) Urine Urobilinogen (<2.0) EU/dL Ur Leukocyte Esterase (NEGATIVE) SARS-CoV-2 RNA (GAYLA) (NEGATIVE) 06/26/20 Range/Units 12:25 WBC (4.0-11.0) K/uL RBC (4.30-5.90) M/uL Hgb (12.0-16.0) g/dL Hct (36.0-46.0) % MCV (80.0-98.0) fL MCH (27.0-32.0) pg MCHC (31.0-37.0) g/dL RDW Std Deviation (28.0-62.0) fl RDW Coeff of Manish (11.0-15.0) % Plt Count (150-400) K/uL MPV (7.40-12.00) fL Neut % (Auto) (48.0-80.0) % Lymph % (Auto) (16.0-40.0) % [place] % (Auto) (0.0-15.0) % Eos % (Auto) (0.0-7.0) % Baso % (Auto) (0.0-1.5) % Neut # (Auto) (1.4-5.7) K/uL Lymph # (Auto) (0.6-2.4) K/uL [place] # (Auto) (0.0-0.8) K/uL Eos # (Auto) (0.0-0.7) K/uL Baso # (Auto) (0.0-0.1) K/uL Nucleated RBC % /100WBC Nucleated RBCs # K/uL D-Dimer, Quantitative (0.0-0.50) mg/L FEU Sodium (136-145) mmol/L Potassium (3.5-5.1) mmol/L Chloride (98-107) mmol/L Carbon Dioxide (21.0-32.0) mmol/L BUN (7.0-18.0) mg/dL Creatinine (0.6-1.0) mg/dL Est Cr Clr Drug Dosing mL/min Estimated GFR (MDRD) ml/min Glucose (74-106) mg/dL POC Glucose 104 (60-110) mg/dL Calcium (8.5-10.1) mg/dL Phosphorus (2.6-4.7) mg/dL Magnesium (1.8-2.4) mg/dL Total Bilirubin (0.2-1.0) mg/dL AST (15-37) IU/L ALT (14-63) IU/L Alkaline Phosphatase (46-116) U/L Troponin I (0.000-0.056) ng/mL Total Protein (6.4-8.2) g/dL Albumin (3.4-5.0) g/dL Globulin (2.6-4.0) g/dL Albumin/Globulin Ratio (0.9-1.6) Urine Color Urine Appearance Urine pH (5.0-8.0) Ur Specific [place] (1.001-1.035) Urine Protein (NEGATIVE) mg/dL Urine Glucose (UA) (NEGATIVE) mg/dL Urine Ketones (NEGATIVE) mg/dL Urine Occult Blood (NEGATIVE) Urine Nitrite (NEGATIVE) Urine Bilirubin (NEGATIVE) Urine Urobilinogen (<2.0) EU/dL Ur Leukocyte Esterase (NEGATIVE) SARS-CoV-2 RNA (GAYLA) (NEGATIVE) Med Orders - Current: Current Medications Albuterol/Ipratropium (Duoneb 3.0-0.5 Mg/3 Ml) 3 ml NEB Q4HRRT PRN PRN Reason: Shortness Of Breath/wheezing Lactated Ringer's (Ringers, Lactated) 1,000 mls @ 125 mls/hr IV ASDIRECTED [facility] Last Admin: 06/26/20 04:54 Dose: 125 mls/hr Documented by: Pantoprazole Sodium 40 mg/ (Sodium Chloride) 10 mls @ 300 mls/hr IV DAILY [facility] Last Admin: 06/26/20 09:03 Dose: 300 mls/hr Documented by: Potassium Chloride 40 meq/ (Premix) 100 mls @ 25 mls/hr IV ONETIME ONE Stop: 06/26/20 16:41 Magnesium Sulfate 4 gm/ Premix 100 mls @ 50 mls/hr IV ONETIME ONE Stop: 06/26/20 14:41 Ketorolac Tromethamine (Toradol) 15 mg IVPUSH Q6H PRN PRN Reason: Pain Stop: 06/30/20 18:21 Last Admin: 06/26/20 12:36 Dose: 15 mg Documented by: Ondansetron HCl (Zofran) 4 mg IVPUSH Q4H PRN PRN Reason: Nausea/Vomiting Sodium Chloride (Saline Flush) 10 ml FLUSH ASDIRECTED PRN PRN Reason: Keep Vein Open Last Admin: 06/25/20 12:05 Dose: 10 ml Documented by: Sodium Chloride (Saline Flush) 2.5 ml FLUSH ASDIRECTED PRN PRN Reason: Keep Vein Open Last Admin: 06/25/20 12:05 Dose: 2.5 ml Documented by: Discontinued Medications Acetaminophen (Tylenol) 650 mg PO Q4H PRN PRN Reason: Pain (Mild 1-3)/fever Sodium Chloride (Normal Saline) 1,000 mls @ 999 mls/hr IV STAT ONE Stop: 06/25/20 12:48 Last Admin: 06/25/20 12:05 Dose: 999 mls/hr Documented by: Sodium Chloride (Normal Saline) 1,000 mls @ 150 mls/hr IV STAT ONE Stop: 06/25/20 20:38 Last Admin: 06/25/20 15:19 Dose: 150 mls/hr Documented by: Iopamidol ([id number] (76%)) 70 ml IVPUSH ONETIME ONE Stop: 06/25/20 14:10 Last Admin: 06/25/20 14:10 Dose: 70 ml Documented by: Morphine Sulfate (Morphine) 1 mg IVPUSH Q6H PRN PRN Reason: Pain Potassium Chloride (Klor-Con M20) 40 meq PO ONETIME ONE Stop: 06/25/20 14:56 Last Admin: 06/25/20 15:18 Dose: 40 meq Documented by: - Exam General: Alert, Oriented, Cooperative, Mild Distress Neck: Supple Lungs: Clear to Auscultation, Normal Respiratory Effort Cardiovascular: Regular Rate, Regular Rhythm GI/Abdominal Exam: Normal Bowel Sounds, Soft, Non-Tender, No Distention. No: Guarding, Rigid, Rebound, Tender Sepsis Event Note - Evaluation Sepsis Screening Result: No Definite Risk - Focused Exam Vital Signs: Vital Signs Temp Pulse Resp BP Pulse Ox 06/26/20 11:45 35.7 C L 82 16 147/96 H 97 06/26/20 10:55 107 H 18 145/82 H 98 06/26/20 10:50 85 17 148/92 H 98 06/26/20 10:45 36.2 C 75 17 141/86 H 97 06/26/20 07:10 36.3 C 83 16 121/84 98 06/26/20 04:15 36.4 C 82 20 132/91 H 96 - Problem List & Annotations (1) Lung nodule SNOMED Code(s): 359994948 Code(s): R91.1 - SOLITARY PULMONARY NODULE Status: Acute Current Visit: Yes (2) Hypokalemia SNOMED Code(s): 45324326 Code(s): E87.6 - HYPOKALEMIA Status: Acute Current Visit: Yes (3) Syncope SNOMED Code(s): 705720090 Code(s): R55 - SYNCOPE AND COLLAPSE Status: Acute Current Visit: Yes Qualifiers: Syncope type: unspecified Qualified Code(s): R55 - Syncope and collapse (4) Transaminitis SNOMED Code(s): 038702163, 419777789 Code(s): R74.01 - ELEVATION OF LEVELS OF LIVER TRANSAMINASE LEVELS Status: Acute Current Visit: Yes - Problem List Review Problem List Initiated/Reviewed/Updated: Yes - My Orders Last 24 Hours: My Active Orders 06/25/20 14:00 Telemetry Monitoring [Cardiac Monitoring] [RC] . DIRECTED 06/25/20 15:36 Ambulate [RC] ASDIRECTED Oxygen Therapy [RC] PRN VTE/DVT Education [RC] DAILY Vital Signs [RC] Q4H Albuterol/Ipratropium [DuoNeb 3.0-0.5 MG/3 ML] 3 ml NEB Q4HRRT PRN Resuscitation Status Routine 06/25/20 15:37 Antiembolic Devices [RC] PER UNIT ROUTINE RT Aerosol Therapy [RC] ASDIRECTED Sequential Compression Device [OM.PC] Per Unit Routine 06/25/20 15:41 Abdomen Ltd [US] Routine 06/25/20 15:45 Lactated Ringers [Ringers, Lactated] 1,000 ml IV ASDIRECTED 06/25/20 18:01 Ondansetron [Zofran] 4 mg IVPUSH Q4H PRN 06/25/20 18:21 Ketorolac [Toradol] 15 mg IVPUSH Q6H PRN 06/25/20 23:41 Accu Check [Blood Glucose Check, Bedside] [RC] Q6H 06/26/20 09:00 Pantoprazole [ProTONIX IV] 40 mg Sodium Chloride 0.9% [Normal Saline] 10 ml IV DAILY 06/26/20 12:42 Magnesium Sulfate/Water [Magnesium Sulfate in Water Premix] 4 gm Premix Bag 1 bag IV ONETIME Potassium Chloride Riders [KCL 40 MEQ in Water 100 ML] 40 meq Premix Bag 1 bag IV ONETIME 06/26/20 12:43 LIPASE [CHEM] Routine 06/26/20 Dinner NPO [Nothing Per Oral Diet] [DIET] - Plan Plan:: 49 y/o F admitted for syncope, generalized weakness cont ivf hydration keep npo for now secondary to n/v, tried eating this am, didnt tolerate Trend lipase LFTs improving duonebs as needed scd for dvt ppx tele so far unremarkable. trops negative, no chest pain monitor and replete electrolytes as needed
[2020-06-27] MEDS: Ketorolac 15 MG/ML SDV IVPUSH PRN ×4 (03:28→20:49)
[2020-06-27] MEDS: Lactated Ringers 1,000 ML IV SCH ×4 (06:25→19:10)
[2020-06-27 06:26] LABS: BLOOD UREA NITROGEN,BUN 7 mg/dL (7.0-18.0); CARBON DIOXIDE,CO2 26.2 mmol/L (21.0-32.0); CHLORIDE,CL 100 mmol/L (98-107); GLUCOSE RANDOM 84 mg/dL (74-106); POTASSIUM,K 4.3 mmol/L (3.5-5.1); SODIUM,NA 136 mmol/L (136-145)
[2020-06-27] MEDS: Pantoprazole 40 MG in Sodium Chloride 0.9% 10 ML IV SCH (09:15)
[2020-06-27] MEDS ORDERED: Meclizine 25 MG Tab PO PRN ×2 (09:33→21:23)
[2020-06-27] MEDS: amLODIPine 5 MG Tab PO SCH (09:47)
--- NOTE | 2020-06-27 10:01 | PCM.PN ---
- General Info Date of Service: 06/27/20 Admission Dx/Problem (Free Text): Admission Diagnosis/Problem Admission Diagnosis/Problem Syncope Subjective Update: [place] nauseated after moving from [place] this morning, but now feeling better. Still gets dizzy with movement getting up. No chest pain or SOB. reports mild abdominal pain to epigastric mid abdomen region. Functional Status: Reports: Pain Controlled, Tolerating Diet, Ambulating, Urinating - Review of Systems General: Reports: Malaise HEENT: Reports: Other (dizziness) Pulmonary: Reports: No Symptoms. Denies: Shortness of Breath Cardiovascular: Reports: No Symptoms. Denies: Chest Pain Gastrointestinal: Reports: Abdominal Pain (epigastric), Nausea, Vomiting Genitourinary: Reports: No Symptoms Musculoskeletal: Reports: No Symptoms Skin: Reports: No Symptoms Neurological: Reports: Dizziness - Patient Data Vitals - Most Recent: Last Vital Signs Temp 99.1 F 06/27/20 07:42 Pulse 74 06/27/20 07:42 Resp 15 06/27/20 07:42 BP 129/85 06/27/20 09:47 Pulse Ox 97 06/27/20 07:42 Orthostatic Blood Pressure [ 162/108 Standing] Orthostatic Blood Pressure [ 142/100 Sitting] Orthostatic Blood Pressure [ 150/100 Supine] Weight - Most Recent: 72.575 kg I&O - Last 24 Hours: Intake & Output 06/26/20 06/27/20 06/27/20 22:59 06:59 14:59 Intake Total 1680 1347 Output Total 2150 900 Balance -470 447 Lab Results Last 24 Hours: Laboratory Results - last 24 hr 06/26/20 06/26/20 06/26/20 Range/Units 10:35 10:35 10:35 WBC 3.79 L (4.0-11.0) K/uL RBC 3.83 L (4.30-5.90) M/uL Hgb 12.6 (12.0-16.0) g/dL Hct 38.8 (36.0-46.0) % MCV 101.3 H (80.0-98.0) fL MCH 32.9 H (27.0-32.0) pg MCHC 32.5 (31.0-37.0) g/dL RDW Std Deviation 49.2 (28.0-62.0) fl RDW Coeff of Manish 13 (11.0-15.0) % Plt Count 165 (150-400) K/uL MPV 10.50 (7.40-12.00) fL Neut % (Auto) 59.2 (48.0-80.0) % Lymph % (Auto) 27.4 (16.0-40.0) % [place] % (Auto) 10.0 (0.0-15.0) % Eos % (Auto) 2.9 (0.0-7.0) % Baso % (Auto) 0.5 (0.0-1.5) % Neut # (Auto) 2.2 (1.4-5.7) K/uL Lymph # (Auto) 1.0 (0.6-2.4) K/uL [place] # (Auto) 0.4 (0.0-0.8) K/uL Eos # (Auto) 0.1 (0.0-0.7) K/uL Baso # (Auto) 0.0 (0.0-0.1) K/uL Nucleated RBC % 0.0 /100WBC Nucleated RBCs # 0 K/uL Sodium 136 (136-145) mmol/L Potassium 3.4 L (3.5-5.1) mmol/L Chloride 100 (98-107) mmol/L Carbon Dioxide 23.6 (21.0-32.0) mmol/L BUN 4 L (7.0-18.0) mg/dL Creatinine 0.7 (0.6-1.0) mg/dL Est Cr Clr Drug Dosing 89.40 mL/min Estimated GFR (MDRD) > 60.0 ml/min Glucose 91 (74-106) mg/dL POC Glucose (60-110) mg/dL Calcium 8.7 (8.5-10.1) mg/dL Phosphorus 2.9 (2.6-4.7) mg/dL Magnesium 1.3 L (1.8-2.4) mg/dL Total Bilirubin 1.0 (0.2-1.0) mg/dL AST 88 H (15-37) IU/L ALT 126 H (14-63) IU/L Alkaline Phosphatase 88 (46-116) U/L Total Protein 6.8 (6.4-8.2) g/dL Albumin 3.5 (3.4-5.0) g/dL Globulin 3.3 (2.6-4.0) g/dL Albumin/Globulin Ratio 1.1 (0.9-1.6) Lipase 665 H (73-393) U/L 06/26/20 06/26/20 06/27/20 Range/Units 12:25 17:31 00:32 WBC (4.0-11.0) K/uL RBC (4.30-5.90) M/uL Hgb (12.0-16.0) g/dL Hct (36.0-46.0) % MCV (80.0-98.0) fL MCH (27.0-32.0) pg MCHC (31.0-37.0) g/dL RDW Std Deviation (28.0-62.0) fl RDW Coeff of Manish (11.0-15.0) % Plt Count (150-400) K/uL MPV (7.40-12.00) fL Neut % (Auto) (48.0-80.0) % Lymph % (Auto) (16.0-40.0) % [place] % (Auto) (0.0-15.0) % Eos % (Auto) (0.0-7.0) % Baso % (Auto) (0.0-1.5) % Neut # (Auto) (1.4-5.7) K/uL Lymph # (Auto) (0.6-2.4) K/uL [place] # (Auto) (0.0-0.8) K/uL Eos # (Auto) (0.0-0.7) K/uL Baso # (Auto) (0.0-0.1) K/uL Nucleated RBC % /100WBC Nucleated RBCs # K/uL Sodium (136-145) mmol/L Potassium (3.5-5.1) mmol/L Chloride (98-107) mmol/L Carbon Dioxide (21.0-32.0) mmol/L BUN (7.0-18.0) mg/dL Creatinine (0.6-1.0) mg/dL Est Cr Clr Drug Dosing mL/min Estimated GFR (MDRD) ml/min Glucose (74-106) mg/dL POC Glucose 104 98 75 (60-110) mg/dL Calcium (8.5-10.1) mg/dL Phosphorus (2.6-4.7) mg/dL Magnesium (1.8-2.4) mg/dL Total Bilirubin (0.2-1.0) mg/dL AST (15-37) IU/L ALT (14-63) IU/L Alkaline Phosphatase (46-116) U/L Total Protein (6.4-8.2) g/dL Albumin (3.4-5.0) g/dL Globulin (2.6-4.0) g/dL Albumin/Globulin Ratio (0.9-1.6) Lipase (73-393) U/L 06/27/20 06/27/20 06/27/20 Range/Units 05:45 05:45 06:27 WBC 4.96 (4.0-11.0) K/uL RBC 3.94 L (4.30-5.90) M/uL Hgb 12.9 (12.0-16.0) g/dL Hct 39.9 (36.0-46.0) % MCV 101.3 H (80.0-98.0) fL MCH 32.7 H (27.0-32.0) pg MCHC 32.3 (31.0-37.0) g/dL RDW Std Deviation 47.8 (28.0-62.0) fl RDW Coeff of Manish 13 (11.0-15.0) % Plt Count 166 (150-400) K/uL MPV 9.90 (7.40-12.00) fL Neut % (Auto) 57.3 (48.0-80.0) % Lymph % (Auto) 28.0 (16.0-40.0) % [place] % (Auto) 11.7 (0.0-15.0) % Eos % (Auto) 2.6 (0.0-7.0) % Baso % (Auto) 0.4 (0.0-1.5) % Neut # (Auto) 2.8 (1.4-5.7) K/uL Lymph # (Auto) 1.4 (0.6-2.4) K/uL [place] # (Auto) 0.6 (0.0-0.8) K/uL Eos # (Auto) 0.1 (0.0-0.7) K/uL Baso # (Auto) 0.0 (0.0-0.1) K/uL Nucleated RBC % 0.0 /100WBC Nucleated RBCs # 0 K/uL Sodium 136 (136-145) mmol/L Potassium 4.3 (3.5-5.1) mmol/L Chloride 100 (98-107) mmol/L Carbon Dioxide 26.2 (21.0-32.0) mmol/L BUN 7 (7.0-18.0) mg/dL Creatinine 0.7 (0.6-1.0) mg/dL Est Cr Clr Drug Dosing 89.40 mL/min Estimated GFR (MDRD) > 60.0 ml/min Glucose 84 (74-106) mg/dL POC Glucose 75 (60-110) mg/dL Calcium 9.0 (8.5-10.1) mg/dL Phosphorus 3.4 (2.6-4.7) mg/dL Magnesium 1.9 (1.8-2.4) mg/dL Total Bilirubin (0.2-1.0) mg/dL AST (15-37) IU/L ALT (14-63) IU/L Alkaline Phosphatase (46-116) U/L Total Protein (6.4-8.2) g/dL Albumin (3.4-5.0) g/dL Globulin (2.6-4.0) g/dL Albumin/Globulin Ratio (0.9-1.6) Lipase (73-393) U/L Med Orders - Current: Current Medications Albuterol/Ipratropium (Duoneb 3.0-0.5 Mg/3 Ml) 3 ml NEB Q4HRRT PRN PRN Reason: Shortness Of Breath/wheezing Amlodipine Besylate (Norvasc) 5 mg PO DAILY [facility] Last Admin: 06/27/20 09:47 Dose: 5 mg Documented by: Pantoprazole Sodium 40 mg/ (Sodium Chloride) 10 mls @ 300 mls/hr IV DAILY [facility] Last Admin: 06/27/20 09:15 Dose: 300 mls/hr Documented by: Lactated Ringer's (Ringers, Lactated) 1,000 mls @ 200 mls/hr IV Q5H [facility] Last Admin: 06/27/20 09:40 Dose: Not Given Documented by: Ketorolac Tromethamine (Toradol) 15 mg IVPUSH Q6H PRN PRN Reason: Pain Stop: 06/30/20 18:21 Last Admin: 06/27/20 09:16 Dose: 15 mg Documented by: Meclizine HCl (Antivert) 25 mg PO Q6H PRN PRN Reason: Dizziness Ondansetron HCl (Zofran) 4 mg IVPUSH Q4H PRN PRN Reason: Nausea/Vomiting Sodium Chloride (Saline Flush) 10 ml FLUSH ASDIRECTED PRN PRN Reason: Keep Vein Open Last Admin: 06/25/20 12:05 Dose: 10 ml Documented by: Sodium Chloride (Saline Flush) 2.5 ml FLUSH ASDIRECTED PRN PRN Reason: Keep Vein Open Last Admin: 06/25/20 12:05 Dose: 2.5 ml Documented by: Discontinued Medications Acetaminophen (Tylenol) 650 mg PO Q4H PRN PRN Reason: Pain (Mild 1-3)/fever Sodium Chloride (Normal Saline) 1,000 mls @ 999 mls/hr IV STAT ONE Stop: 06/25/20 12:48 Last Admin: 06/25/20 12:05 Dose: 999 mls/hr Documented by: Sodium Chloride (Normal Saline) 1,000 mls @ 150 mls/hr IV STAT ONE Stop: 06/25/20 20:38 Last Admin: 06/25/20 15:19 Dose: 150 mls/hr Documented by: Lactated Ringer's (Ringers, Lactated) 1,000 mls @ 125 mls/hr IV ASDIRECTED [facility] Last Admin: 06/27/20 06:25 Dose: 125 mls/hr Documented by: Magnesium Sulfate 4 gm/ Premix 100 mls @ 50 mls/hr IV ONETIME ONE Stop: 06/26/20 14:41 Last Admin: 06/26/20 13:45 Dose: 50 mls/hr Documented by: Potassium Chloride 40 meq/ (Premix) 100 mls @ 25 mls/hr IV ONETIME ONE Stop: 06/26/20 19:59 Last Admin: 06/26/20 15:53 Dose: 25 mls/hr Documented by: Iopamidol (Isovue-370 (76%)) 70 ml IVPUSH ONETIME ONE Stop: 06/25/20 14:10 Last Admin: 06/25/20 14:10 Dose: 70 ml Documented by: Morphine Sulfate (Morphine) 1 mg IVPUSH Q6H PRN PRN Reason: Pain Potassium Chloride (Klor-Con M20) 40 meq PO ONETIME ONE Stop: 06/25/20 14:56 Last Admin: 06/25/20 15:18 Dose: 40 meq Documented by: - Exam General: Alert, Oriented, Cooperative, No Acute Distress Lungs: Clear to Auscultation, Normal Respiratory Effort Cardiovascular: Regular Rate, Regular Rhythm GI/Abdominal Exam: Normal Bowel Sounds, Soft, Tender (scant tenderness epigastric) Extremities: Normal Inspection, Normal Range of Motion, Non-Tender, No Pedal Edema Neurological: No New Focal Deficit Psy/Mental Status: Alert, Normal Affect, Normal Mood, Anxious Sepsis Event Note - Evaluation Sepsis Screening Result: No Definite Risk - Focused Exam Vital Signs: Vital Signs Temp Pulse Resp BP BP Pulse Ox 06/27/20 09:47 129/85 06/27/20 07:42 99.1 F 74 15 151/88 H 97 06/27/20 03:34 96.4 F L 75 15 139/85 97 06/27/20 00:45 95.5 F L 77 16 145/98 H 99 - Problem List & Annotations (1) Dizziness SNOMED Code(s): 516460521, 083321977 Code(s): R42 - DIZZINESS AND GIDDINESS Status: Acute Current Visit: Yes (2) Hypertension SNOMED Code(s): 54732741 Code(s): I10 - ESSENTIAL (PRIMARY) HYPERTENSION Status: Acute Current Visit: Yes (3) Gastroenteritis SNOMED Code(s): 56927652 Code(s): K52.9 - NONINFECTIVE GASTROENTERITIS AND COLITIS, UNSPECIFIED Status: Acute Current Visit: Yes (4) Pancreatitis SNOMED Code(s): 75711948 Code(s): K85.90 - ACUTE PANCREATITIS WITHOUT NECROSIS OR INFECTION, UNSP Status: Acute Current Visit: Yes (5) Dehydration SNOMED Code(s): 27074365 Code(s): E86.0 - DEHYDRATION Status: Acute Current Visit: Yes (6) Syncope SNOMED Code(s): 839043024 Code(s): R55 - SYNCOPE AND COLLAPSE Status: Acute Current Visit: Yes Qualifiers: Syncope type: unspecified Qualified Code(s): R55 - Syncope and collapse (7) Transaminitis SNOMED Code(s): 064766798, 070761787 Code(s): R74.01 - ELEVATION OF LEVELS OF LIVER TRANSAMINASE LEVELS Status: Acute Current Visit: Yes - Problem List Review Problem List Initiated/Reviewed/Updated: Yes - My Orders Last 24 Hours: My Active Orders 06/27/20 09:33 C DIFFICILE AG/TOXIN W/REFLEX [RM] Urgent STOOL CULTURE/SHIGA TOXIN [MREF] Urgent Meclizine [Antivert] 25 mg PO Q6H PRN 06/27/20 09:45 Lactated Ringers [Ringers, Lactated] 1,000 ml IV Q5H amLODIPine [Norvasc] 5 mg PO DAILY 06/27/20 Lunch Clear Liquid Diet [DIET] - Plan Plan:: This 49 y/o F admitted for syncope, generalized weakness 1. Syncope, dizziness - Telemetry has been negative for arrhythmias - No Orthostasis - Hypertension is persistent, will treat this and monitor dizziness - PT to evaluate and treat dizziness 2. Pancreatitis: - Lipase elevated, likely related to gastroenteritis - Obtain stool studies - Increase IVFs to 200 ml/hr - Trial CL diet - repeat lipase in am - LFTs improving - RUQ negative, fatty infiltration noted. 3. Hypertension - Start Amlodipine and monitor VTE prophylaxis: SCDs and ambulation Dispo: 1-2 days
--- NOTE | 2020-06-27 10:07 | US ---
INDICATION: Transaminitis. TECHNIQUE: Ultrasound abdomen limited. Sonographic images of the right upper quadrant were obtained using douglas-scale and color Doppler images. COMPARISON: None FINDINGS: Liver: Normal in caliber. Diffusely hyperechoic consistent with fatty infiltration. No masses. No intrahepatic biliary dilatation. Gallbladder: Status post cholecystectomy. Common bile duct: 3 mm. Pancreas: Normal. Right kidney: Normal in size. Normal echotexture and cortex. No masses, stones, or hydronephrosis. Vasculature: Proximal abdominal aorta and IVC are normal. IMPRESSION: Status post cholecystectomy. Diffuse fatty infiltration of the liver. Otherwise unremarkable right upper quadrant ultrasound. Dictated by Jame Lee MD @ Jun 27 2020 10:04AM Signed by Dr. Jame Lee @ Jun 27 2020 10:06AM
[2020-06-27] MEDS ORDERED: LORazepam 2 MG/ML SDV IVPUSH ONE (13:45)
[2020-06-27] MEDS ORDERED: Gadobenate Dimeglumine 529 MG/ML 20 ML SDV IVPUSH STA (17:03)
--- NOTE | 2020-06-27 17:10 | MR ---
INDICATION: Dizziness. COMPARISON: CT 06/25/2020. TECHNIQUE: [id number] MRA of the head. 3D reconstructed images. FINDINGS: Bilateral carotid siphons are patent. Patent [place] with patent bilateral posterior communicating arteries. Visualized bilateral YOEL and MCA circulations are patent without focal stenosis or aneurysm. Bilateral CENTER MGR circulations are patent without stenosis or aneurysm. Patent codominant vertebrobasilar system. IMPRESSION: Normal MRA head. Dictated by Linus Hodge MD @ Jun 27 2020 5:07PM Signed by Dr. Linus Hodge @ Jun 27 2020 5:08PM
--- NOTE | 2020-06-27 18:40 | MR ---
INDICATION: Dizziness TECHNIQUE: MRI: Multiplanar multi-weighted MRI of the brain and brainstem was performed without and with intravenous contrast. MRA head: Magnetic resonance angiography of the [id number] was performed using separate data set acquisitions including a non-contrast yegk-ze-ejsanj technique to produce axial thin-slice source images. These images were then used to generate maximum intensity projection (MIP) images at the request of the referring physician. MRA neck: Magnetic resonance angiography of the neck was performed using separate data set acquisitions including a non-contrast hcaf-rv-[id number] technique and a post-contrast technique to produce axial thin-slice source images. These images were then used to generate maximum intensity projection (MIP) images at the request of the referring physician. COMPARISON: None available FINDINGS: MRI: Ventricles are normal size, shape and morphology. The scalp and calvarium are normal. There is no intra- or extra-axial fluid collection. The posterior fossa is unremarkable. The pituitary and sella are normal. The brainstem and craniocervical junction are unremarkable. Diffusion weighted images reveal no hyperintensities to suggest acute cerebral infarction. Susceptibility weighted images reveal no evidence of acute or chronic hemorrhage. The paranasal sinuses are normal. The visualized portions of the mastoids are unremarkable. The orbits appear normal. There is no abnormal enhancement. MRA head: There is no aneurysm. There is no significant stenosis of the intracranial arteries. MRA neck: There is no significant stenosis of the common, cervical internal, or external carotid arteries. The vertebral arteries are codominant. There is no significant stenosis of the cervical vertebral arteries. IMPRESSION: 1. No MRI evidence of acute stroke 2. No significant stenosis of the cervical or intracranial arteries Dictated by Raleigh George MD @ Jun 27 2020 8:00PM Signed by Dr. Raleigh George @ Jun 27 2020 8:10PM
--- NOTE | 2020-06-27 18:40 | MR ---
INDICATION: Dizziness TECHNIQUE: MRI: Multiplanar multi-weighted MRI of the brain and brainstem was performed without and with intravenous contrast. MRA head: Magnetic resonance angiography of the [id number] was performed using separate data set acquisitions including a non-contrast klhn-eh-vefspt technique to produce axial thin-slice source images. These images were then used to generate maximum intensity projection (MIP) images at the request of the referring physician. MRA neck: Magnetic resonance angiography of the neck was performed using separate data set acquisitions including a non-contrast hvop-jv-itcssd technique and a post-contrast technique to produce axial thin-slice source images. These images were then used to generate maximum intensity projection (MIP) images at the request of the referring physician. COMPARISON: None available FINDINGS: MRI: Ventricles are normal size, shape and morphology. The scalp and calvarium are normal. There is no intra- or extra-axial fluid collection. The posterior fossa is unremarkable. The pituitary and sella are normal. The brainstem and craniocervical junction are unremarkable. Diffusion weighted images reveal no hyperintensities to suggest acute cerebral infarction. Susceptibility weighted images reveal no evidence of acute or chronic hemorrhage. The paranasal sinuses are normal. The visualized portions of the mastoids are unremarkable. The orbits appear normal. There is no abnormal enhancement. MRA head: There is no aneurysm. There is no significant stenosis of the intracranial arteries. MRA neck: There is no significant stenosis of the common, cervical internal, or external carotid arteries. The vertebral arteries are codominant. There is no significant stenosis of the cervical vertebral arteries. IMPRESSION: 1. No MRI evidence of acute stroke 2. No significant stenosis of the cervical or intracranial arteries Dictated by Raleigh George MD @ Jun 27 2020 8:01PM Signed by Dr. Raleigh George @ Jun 27 2020 8:09PM
[2020-06-28] MEDS: Lactated Ringers 1,000 ML IV SCH ×2 (00:07→05:08)
[2020-06-28 07:09] LABS: BLOOD UREA NITROGEN,BUN 6 mg/dL (7.0-18.0); CARBON DIOXIDE,CO2 24.5 mmol/L (21.0-32.0); CHLORIDE,CL 104 mmol/L (98-107); GLUCOSE RANDOM 95 mg/dL (74-106); LIPASE 884 U/L (73-393); POTASSIUM,K 3.2 mmol/L (3.5-5.1); SODIUM,NA 140 mmol/L (136-145)
[2020-06-28] MEDS ORDERED: Potassium Chloride 20 MEQ Tab.ER PO ONE (07:54)
[2020-06-28] MEDS ORDERED: Magnesium Sulfate/Water 2 GM/50 ML Premix Bag IV ONE (07:54)
[2020-06-28] MEDS ORDERED: Magnesium Sulfate/Water 2 GM/50 ML BAG IV ONE (08:00)
[2020-06-28] MEDS: amLODIPine 5 MG Tab PO SCH (08:12)
[2020-06-28] MEDS: Pantoprazole 40 MG in Sodium Chloride 0.9% 10 ML IV SCH (08:12)
[2020-06-28] MEDS: Ketorolac 15 MG/ML SDV IVPUSH PRN (08:35)
[2020-06-28 10:58] VITALS: BP 116/72; PULSE 77
--- NOTE | 2020-06-28 11:06 | PCM.DCSUM1 ---
Discharge Summary - Hospital Course Brief History: Patient is a 49-year-old female who presents to the emergency room with complaints of weakness, syncopal episodes for past 2 days. She states she has had 3 syncopal events where she felt very dizzy and weak, her vision starts to black out and she is able to let her self down to the ground where she passes out briefly for few minutes Denies any head, neck, back or extremity pain. Patient denies any fever, chills, headache, syncope or near syncope. Denies any chest pain, back pain, shortness of breath or cough. Has not noted any blood in urine or stool. No chance of , hysterectomy. Shr states she hasnt been eating properly due to Nausea. Work up in ER revealed: Negative head CT and chest x-ray, normal troponin, EKG unremarkable, Decreased potassium, 3.1. Slightly elevated Lipase, 553, abnormal LFTs,. Patient does have an elevated d-dimer, CT chest shows no acute PE. Areas of minimal atelectasis versus scarring in the lungs. No consolidation. There is a 4 mm micro nodule in the left lower lobe. Pronounced fatty infiltration of the liver. Patient received IV fluids and continued to feel weak so was admitted for further management. Diagnosis: Stroke: No - Discharge Data Discharge Date: 06/28/20 Discharge Disposition: Home, Self-Care 01 Condition: Stable - Referral to Home Health Primary Care Physician: PCP None - Discharge Diagnosis/Problem(s) (1) Dizziness SNOMED Code(s): 105689535, 995231770 ICD Code: R42 - DIZZINESS AND GIDDINESS Status: Acute (2) Hypertension SNOMED Code(s): 80666488 ICD Code: I10 - ESSENTIAL (PRIMARY) HYPERTENSION Status: Acute (3) Gastroenteritis SNOMED Code(s): 54430220 ICD Code: K52.9 - NONINFECTIVE GASTROENTERITIS AND COLITIS, UNSPECIFIED Status: Acute (4) Pancreatitis SNOMED Code(s): 31670952 ICD Code: K85.90 - ACUTE PANCREATITIS WITHOUT NECROSIS OR INFECTION, UNSP Status: Acute (5) Dehydration SNOMED Code(s): 06109934 ICD Code: E86.0 - DEHYDRATION Status: Acute (6) Syncope SNOMED Code(s): 252795893 ICD Code: R55 - SYNCOPE AND COLLAPSE Status: Acute Qualifiers: Syncope type: unspecified Qualified Code(s): R55 - Syncope and collapse (7) Transaminitis SNOMED Code(s): 346853824, 133257660 ICD Code: R74.01 - ELEVATION OF LEVELS OF LIVER TRANSAMINASE LEVELS Status: Acute - Patient Summary/Data Consults: Consultations 06/27/20 11:50 PT Evaluation and Treatment [CONS] Routine Hospital Course: Admitting Diagnoses: Syncope Dehydration Pancreatitis Gastroenteritis Discharge Diagnoses: Syncope Dehydration Pancreatitis Gastroenteritis HTN Gillian was admitted and treated with IVF resuscitation. She was monitored on telemetry, with mild tachycardia, which improved with hydration. Pancreatitis noted due to elevated lipase, bowel rest was continued. Yesterday RUQ US obtained, which revealed fatty infiltration. She was encouraged to monitor diet. CL diet was started then advanced to soft. She continued to tolerate this. Dizziness improved once BP and hydration were controlled. Amlodipine was started and BP remained 130/70s. She was up ambulating in her room and did well. No syncope and no worsening of dizziness. PT evaluated her for dizziness and ave concern for vertebral stenosis with blurred vision intermittently. MRI brain and MRA neck and head obtained, completely normal. Today she is much improved Meclizine helped dizziness and she is eager to go home. She will have Meclizine PRN, Amlodipine 5 mg daily for BP and to monitor her BP at home. If BP drops too low hold Amlodipine. Prilosec daily x 1 month. She is to return to the ED or clinic if concerns should arise. - Patient Instructions Diet: GI Soft/Low Residue/Low Fiber Activity: No Strenuous Activities, Rest and Relax Today Driving: Do Not Drive (after taking Meclizine) Notify Provider of: Fever, Increased Pain, Swelling and Redness, Drainage, Nausea and/or Vomiting - Discharge Plan *PRESCRIPTION DRUG MONITORING PROGRAM REVIEWED*: Not Applicable *COPY OF PRESCRIPTION DRUG MONITORING REPORT IN PATIENT SILVER: Not Applicable Prescriptions/Med Rec: Meclizine [Antivert] 25 mg PO TID PRN #15 tablet PRN Reason: Dizziness Ibuprofen 400 mg PO Q6H PRN #1 tablet PRN Reason: Pain amLODIPine [Norvasc] 5 mg PO DAILY #30 tablet Omeprazole 20 mg PO DAILY #30 tablet. Home Medications: Home Meds Ibuprofen 400 mg PO Q6H PRN #1 tablet 06/28/20 [Rx] Meclizine [Antivert] 25 mg PO TID PRN #15 tablet 06/28/20 [Rx] Omeprazole 20 mg PO DAILY #30 tablet. 06/28/20 [Rx] amLODIPine [Norvasc] 5 mg PO DAILY #30 tablet 06/28/20 [Rx] Oxygen Therapy Mode: Room Air Patient Handouts: Meclizine tablets or capsules, Pancreatitis Eating Plan, Hypertension, Adult, [id number], Amlodipine tablets, Dizziness, [id number], Omeprazole tablets (OTC) Referrals: Sakshi Franklin PA [Physician General Manager [employer]] - 07/05/20 10:30 am - Discharge Summary/Plan Comment DC Time >30 min.: No - Patient Data Vitals - Most Recent: Last Vital Signs Temp 97.4 F 06/28/20 10:57 Pulse 77 06/28/20 10:57 Resp 16 06/28/20 10:57 BP 116/72 06/28/20 10:57 Pulse Ox 97 06/28/20 10:57 Orthostatic Blood Pressure [ 162/108 Standing] Orthostatic Blood Pressure [ 142/100 Sitting] Orthostatic Blood Pressure [ 150/100 Supine] Weight - Most Recent: 72.575 kg I&O - Last 24 hours: Intake & Output 06/27/20 06/28/20 06/28/20 22:59 06:59 14:59 Intake Total 2956 900 Output Total 600 1000 Balance 2356 -100 Lab Results - Last 24 hrs: Laboratory Results - last 24 hr 06/27/20 06/27/20 06/28/20 Range/Units 12:18 18:19 05:45 WBC 4.78 (4.0-11.0) K/uL RBC 3.74 L (4.30-5.90) M/uL Hgb 12.2 (12.0-16.0) g/dL Hct 37.8 (36.0-46.0) % MCV 101.1 H (80.0-98.0) fL MCH 32.6 H (27.0-32.0) pg MCHC 32.3 (31.0-37.0) g/dL RDW Std Deviation 47.8 (28.0-62.0) fl RDW Coeff of Manish 13 (11.0-15.0) % Plt Count 184 (150-400) K/uL MPV 9.90 (7.40-12.00) fL Neut % (Auto) 55.6 (48.0-80.0) % Lymph % (Auto) 28.5 (16.0-40.0) % [place] % (Auto) 12.6 (0.0-15.0) % Eos % (Auto) 2.7 (0.0-7.0) % Baso % (Auto) 0.6 (0.0-1.5) % Neut # (Auto) 2.7 (1.4-5.7) K/uL Lymph # (Auto) 1.4 (0.6-2.4) K/uL [place] # (Auto) 0.6 (0.0-0.8) K/uL Eos # (Auto) 0.1 (0.0-0.7) K/uL Baso # (Auto) 0.0 (0.0-0.1) K/uL Nucleated RBC % 0.0 /100WBC Nucleated RBCs # 0 K/uL Sodium (136-145) mmol/L Potassium (3.5-5.1) mmol/L Chloride (98-107) mmol/L Carbon Dioxide (21.0-32.0) mmol/L BUN (7.0-18.0) mg/dL Creatinine (0.6-1.0) mg/dL Est Cr Clr Drug Dosing mL/min Estimated GFR (MDRD) ml/min Glucose (74-106) mg/dL POC Glucose 101 111 H (60-110) mg/dL Calcium (8.5-10.1) mg/dL Magnesium (1.8-2.4) mg/dL Total Bilirubin (0.2-1.0) mg/dL AST (15-37) IU/L ALT (14-63) IU/L Alkaline Phosphatase (46-116) U/L Total Protein (6.4-8.2) g/dL Albumin (3.4-5.0) g/dL Globulin (2.6-4.0) g/dL Albumin/Globulin Ratio (0.9-1.6) Lipase (73-393) U/L 06/28/20 Range/Units 05:45 WBC (4.0-11.0) K/uL RBC (4.30-5.90) M/uL Hgb (12.0-16.0) g/dL Hct (36.0-46.0) % MCV (80.0-98.0) fL MCH (27.0-32.0) pg MCHC (31.0-37.0) g/dL RDW Std Deviation (28.0-62.0) fl RDW Coeff of Manish (11.0-15.0) % Plt Count (150-400) K/uL MPV (7.40-12.00) fL Neut % (Auto) (48.0-80.0) % Lymph % (Auto) (16.0-40.0) % [place] % (Auto) (0.0-15.0) % Eos % (Auto) (0.0-7.0) % Baso % (Auto) (0.0-1.5) % Neut # (Auto) (1.4-5.7) K/uL Lymph # (Auto) (0.6-2.4) K/uL [place] # (Auto) (0.0-0.8) K/uL Eos # (Auto) (0.0-0.7) K/uL Baso # (Auto) (0.0-0.1) K/uL Nucleated RBC % /100WBC Nucleated RBCs # K/uL Sodium 140 (136-145) mmol/L Potassium 3.2 L (3.5-5.1) mmol/L Chloride 104 (98-107) mmol/L Carbon Dioxide 24.5 (21.0-32.0) mmol/L BUN 6 L (7.0-18.0) mg/dL Creatinine 0.7 (0.6-1.0) mg/dL Est Cr Clr Drug Dosing 89.40 mL/min Estimated GFR (MDRD) > 60.0 ml/min Glucose 95 (74-106) mg/dL POC Glucose (60-110) mg/dL Calcium 8.9 (8.5-10.1) mg/dL Magnesium 1.7 L (1.8-2.4) mg/dL Total Bilirubin 0.4 (0.2-1.0) mg/dL AST 57 H (15-37) IU/L ALT 86 H (14-63) IU/L Alkaline Phosphatase 77 (46-116) U/L Total Protein 6.2 L (6.4-8.2) g/dL Albumin 3.1 L (3.4-5.0) g/dL Globulin 3.1 (2.6-4.0) g/dL Albumin/Globulin Ratio 1.0 (0.9-1.6) Lipase 884 H (73-393) U/L TAWANNA Results - Last 24 hrs: Microbiology 06/27/20 14:20 C. difficile Antigen & Toxins A,B - Final Stool / Feces Med Orders - Current: Current Medications Albuterol/Ipratropium (Duoneb 3.0-0.5 Mg/3 Ml) 3 ml NEB Q4HRRT PRN PRN Reason: Shortness Of Breath/wheezing Amlodipine Besylate (Norvasc) 5 mg PO DAILY [facility] Last Admin: 06/28/20 08:12 Dose: 5 mg Documented by: Pantoprazole Sodium 40 mg/ (Sodium Chloride) 10 mls @ 300 mls/hr IV DAILY [facility] Last Admin: 06/28/20 08:12 Dose: 300 mls/hr Documented by: Lactated Ringer's (Ringers, Lactated) 1,000 mls @ 200 mls/hr IV ASDIRECTED MARGARITO Last Admin: 06/28/20 05:08 Dose: 200 mls/hr Documented by: Ketorolac Tromethamine (Toradol) 15 mg IVPUSH Q6H PRN PRN Reason: Pain Stop: 06/30/20 18:21 Last Admin: 06/28/20 08:35 Dose: 15 mg Documented by: Meclizine HCl (Antivert) 25 mg PO DAILY PRN PRN Reason: Dizziness Last Admin: 06/27/20 22:33 Dose: 25 mg Documented by: Ondansetron HCl (Zofran) 4 mg IVPUSH Q4H PRN PRN Reason: Nausea/Vomiting Sodium Chloride (Saline Flush) 10 ml FLUSH ASDIRECTED PRN PRN Reason: Keep Vein Open Last Admin: 06/25/20 12:05 Dose: 10 ml Documented by: Sodium Chloride (Saline Flush) 2.5 ml FLUSH ASDIRECTED PRN PRN Reason: Keep Vein Open Last Admin: 06/25/20 12:05 Dose: 2.5 ml Documented by: Discontinued Medications Acetaminophen (Tylenol) 650 mg PO Q4H PRN PRN Reason: Pain (Mild 1-3)/fever Gadobenate Dimeglumine (Multihance) 20 ml IVPUSH ONETIME STA Stop: 06/27/20 17:04 Last Admin: 06/27/20 17:04 Dose: 20 ml Documented by: Sodium Chloride (Normal Saline) 1,000 mls @ 999 mls/hr IV STAT ONE Stop: 06/25/20 12:48 Last Admin: 06/25/20 12:05 Dose: 999 mls/hr Documented by: Sodium Chloride (Normal Saline) 1,000 mls @ 150 mls/hr IV STAT ONE Stop: 06/25/20 20:38 Last Admin: 06/25/20 15:19 Dose: 150 mls/hr Documented by: Lactated Ringer's (Ringers, Lactated) 1,000 mls @ 125 mls/hr IV ASDIRECTED [facility] Last Admin: 06/27/20 06:25 Dose: 125 mls/hr Documented by: Magnesium Sulfate 4 gm/ Premix 100 mls @ 50 mls/hr IV ONETIME ONE Stop: 06/26/20 14:41 Last Admin: 06/26/20 13:45 Dose: 50 mls/hr Documented by: Potassium Chloride 40 meq/ (Premix) 100 mls @ 25 mls/hr IV ONETIME ONE Stop: 06/26/20 19:59 Last Admin: 06/26/20 15:53 Dose: 25 mls/hr Documented by: Lactated Ringer's (Ringers, Lactated) 1,000 mls @ 200 mls/hr IV Q5H [facility] Last Admin: 06/27/20 12:34 Dose: 200 mls/hr Documented by: Magnesium Sulfate (Magnesium Sulfate In Water Premix) 2 gm in 50 mls @ 50 mls/hr IV ONETIME ONE Stop: 06/28/20 08:59 Last Admin: 06/28/20 08:35 Dose: 50 mls/hr Documented by: Iopamidol (Isovue-370 (76%)) 70 ml IVPUSH ONETIME ONE Stop: 06/25/20 14:10 Last Admin: 06/25/20 14:10 Dose: 70 ml Documented by: Lorazepam (Ativan) 0.5 mg IVPUSH ONCALL ONE Stop: 06/27/20 13:46 Last Admin: 06/27/20 16:09 Dose: 0.5 mg Documented by: Meclizine HCl (Antivert) 25 mg PO Q6H PRN PRN Reason: Dizziness Morphine Sulfate (Morphine) 1 mg IVPUSH Q6H PRN PRN Reason: Pain Potassium Chloride (Klor-Con M20) 40 meq PO ONETIME ONE Stop: 06/25/20 14:56 Last Admin: 06/25/20 15:18 Dose: 40 meq Documented by: Potassium Chloride (Klor-Con M20) 40 meq PO ONETIME ONE Stop: 06/28/20 07:55 Last Admin: 06/28/20 08:12 Dose: 40 meq Documented by:
== END 2020-06-28 11:45 | disposition home or self-care (01) ==
LOC: MW.ED 11:13 → MW.MS 14:56
PROVIDERS: ADMIT Student in an Organized Health Care Education/Training Program; ATTEND Student in an Organized Health Care Education/Training Program
DX: R55 Syncope and collapse (principal); R53.1 Weakness; R91.1 Solitary pulmonary nodule; E87.6 Hypokalemia; I10 Essential (primary) hypertension; K52.9 Noninfective gastroenteritis and colitis, unspecified; K85.90 Acute pancreatitis without necrosis or infection, unspecified; E86.0 Dehydration; R74.01 Elevation of levels of liver transaminase levels; Z88.5 Allergy status to narcotic agent; Z90.49 Acquired absence of other specified parts of digestive tract; Z98.890 Other specified postprocedural states; Z79.899 Other long term (current) drug therapy; Z20.828 Contact with and (suspected) exposure to other viral communicable diseases
CPT/HCPCS: 36415; 70450; 70544; 70548; 70553; 71045; 71275; 76705; 80048; 80053; 81003; 82962; 83690; 83735; 84100; 84484; 85025; 85379; 87045; 87046; 87324; 87449; 87635; 87899; 93005; 96361; 96365; 96366; 96375; 96376; 97161; 97530; 99285; A9270; A9577; C9113; G0378; J1885; J2060; J3475; J3480; J7030; J7050; J7120; Q9967; 93010; 96360; 99217; 99218; 99225; 99283; U0002

== ENCOUNTER 2022-10-28 11:45 | Inpatient (IN) | payer SELFPAY ==
[2022-10-28] MEDS ORDERED: Sodium Chloride 0.9% 1,000 ML IV STA ×2 (12:24→13:16)
[2022-10-28] MEDS ORDERED: Ondansetron 4 MG/2 ML SDV IVPUSH STA (12:24)
[2022-10-28 12:57] LABS: POTASSIUM,K 3.3 mmol/L (3.5-5.1)
[2022-10-28 13:07] LABS: CORONAVIRUS COVID-19 NAA NEGATIVE (NEGATIVE); INFLUENZA A NAA NEGATIVE (NEGATIVE); INFLUENZA B NAA NEGATIVE (NEGATIVE)
[2022-10-28] MEDS ORDERED: Prochlorperazine 10 MG/2 ML SDV IVPUSH STA (13:12)
[2022-10-28] MEDS ORDERED: Sodium Chloride 0.9% 500 ML IV ONE (13:30)
[2022-10-28] MEDS ORDERED: Magnesium Sulfate/Water 2 GM in Premix Bag 1 BAG IV STA (13:31)
[2022-10-28] MEDS: Potassium Chloride 100 ML IV SCH ×2 (13:49→15:26)
[2022-10-28] MEDS ORDERED: Promethazine 25 MG/ML SDV IM STA (15:21)
[2022-10-28] MEDS: Sodium Chloride 0.9% 1,000 ML IV SCH (20:30)
[2022-10-28] MEDS: Enoxaparin 40 MG/0.4 ML Syringe SUBCUT SCH (20:30)
[2022-10-28] MEDS: Ondansetron 4 MG/2 ML SDV IVPUSH PRN (20:31)
[2022-10-28] MEDS: Pantoprazole 40 MG in Sodium Chloride 0.9% 10 ML IVPUSH SCH (20:31)
[2022-10-28] MEDS: Ketorolac 30 MG/ML SDV IVPUSH PRN (21:10)
[2022-10-28] MEDS: LORazepam 2 MG/ML SDV IVPUSH PRN (21:10)
[2022-10-29 06:01] LABS: CARBON DIOXIDE,CO2 18.3 mmol/L (21.0-32.0)
[2022-10-29] MEDS: Sodium Chloride 0.9% 1,000 ML IV SCH ×3 (06:31→21:22)
[2022-10-29] MEDS: Ketorolac 30 MG/ML SDV IVPUSH PRN ×3 (06:39→18:48)
[2022-10-29] MEDS: Ondansetron 4 MG/2 ML SDV IVPUSH PRN ×3 (06:39→18:48)
[2022-10-29] MEDS: Thiamine 200 MG/2 ML MDV IVPUSH SCH (08:07)
[2022-10-29] MEDS: Potassium Chloride 100 ML IV SCH ×5 (08:08→17:04)
[2022-10-29] MEDS: Folic Acid 1 MG/0.2 ML UD Syringe IV SCH (08:08)
[2022-10-29] MEDS: Acetaminophen 325 MG Tab PO PRN ×3 (08:59→21:21)
[2022-10-29] MEDS ORDERED: Thiamine 100 MG in Sodium Chloride 0.9% 100 ML IV SCH (09:00)
[2022-10-29] MEDS ORDERED: Potassium Chloride 100 ML IV SCH (09:45)
[2022-10-29] MEDS: LORazepam 2 MG/ML SDV IVPUSH PRN ×3 (10:19→16:57)
[2022-10-29] MEDS: Pantoprazole 40 MG in Sodium Chloride 0.9% 10 ML IVPUSH SCH (21:21)
[2022-10-29] MEDS: Enoxaparin 40 MG/0.4 ML Syringe SUBCUT SCH (21:21)
[2022-10-30] MEDS: LORazepam 2 MG/ML SDV IVPUSH PRN ×2 (00:29→10:23)
[2022-10-30] MEDS: Ketorolac 30 MG/ML SDV IVPUSH PRN ×4 (04:05→22:45)
[2022-10-30] MEDS: Ondansetron 4 MG/2 ML SDV IVPUSH PRN ×2 (04:05→10:24)
[2022-10-30] MEDS: Sodium Chloride 0.9% 1,000 ML IV SCH ×2 (04:05→10:24)
[2022-10-30 07:36] LABS: CARBON DIOXIDE,CO2 18.1 mmol/L (21.0-32.0); POTASSIUM,K 3.2 mmol/L (3.5-5.1)
[2022-10-30] MEDS: Acetaminophen 325 MG Tab PO PRN ×2 (08:16→20:23)
[2022-10-30] MEDS: Folic Acid 1 MG/0.2 ML UD Syringe IV SCH (08:16)
[2022-10-30] MEDS: Thiamine 200 MG/2 ML MDV IVPUSH SCH (08:16)
[2022-10-30] MEDS ORDERED: Potassium Chloride 20 MEQ Tab.ER PO ONE (09:00)
[2022-10-30] MEDS: Vancomycin 125 MG Cap PO SCH ×3 (12:23→23:27)
[2022-10-30] MEDS ORDERED: Dextrose 5%-0.9% NaCl 1,000 ML IV SCH (17:15)
[2022-10-30] MEDS: Dextrose 5%-0.9% NaCl 1,000 ML IV PRN (17:31)
[2022-10-30] MEDS: Enoxaparin 40 MG/0.4 ML Syringe SUBCUT SCH (20:23)
[2022-10-30] MEDS: Pantoprazole 40 MG in Sodium Chloride 0.9% 10 ML IVPUSH SCH (20:23)
[2022-10-31] MEDS: Dextrose 5%-0.9% NaCl 1,000 ML IV PRN (00:25)
[2022-10-31] MEDS: Ketorolac 30 MG/ML SDV IVPUSH PRN ×2 (05:30→11:33)
[2022-10-31] MEDS: Vancomycin 125 MG Cap PO SCH ×2 (05:31→11:32)
[2022-10-31 06:40] LABS: CARBON DIOXIDE,CO2 24.5 mmol/L (21.0-32.0); POTASSIUM,K 3.3 mmol/L (3.5-5.1)
[2022-10-31] MEDS ORDERED: Potassium Chloride 20 MEQ Tab.ER PO ONE (07:00)
[2022-10-31] MEDS ORDERED: NS + KCl 20mEq/L 1,000 ML IV SCH (07:00)
[2022-10-31] MEDS: Thiamine 200 MG/2 ML MDV IVPUSH SCH (08:35)
[2022-10-31] MEDS: Folic Acid 1 MG/0.2 ML UD Syringe IV SCH (08:35)
[2022-10-31] MEDS: Acetaminophen 325 MG Tab PO PRN (08:35)
[2022-10-31 08:55] VITALS: BP 149/94; PULSE 75
== END 2022-10-31 13:40 | disposition home or self-care (01) | DRG 896 ==
LOC: MW.ED 11:45 → MW.MS 16:00 → OBSVTOIN 10-30 09:32 → MW.MS 10-30 14:19
PROVIDERS: ADMIT Hospitalist; ATTEND Hospitalist
DX: F10.239 Alcohol dependence with withdrawal, unspecified (principal); K85.20 Alcohol induced acute pancreatitis without necrosis or infection; A04.72 Enterocolitis due to Clostridium difficile, not specified as recurrent; E86.0 Dehydration; K57.30 Diverticulosis of large intestine without perforation or abscess without bleeding; D69.6 Thrombocytopenia, unspecified; E87.6 Hypokalemia; I10 Essential (primary) hypertension; Z20.822 Contact with and (suspected) exposure to COVID-19; Z90.710 Acquired absence of both cervix and uterus; Z90.49 Acquired absence of other specified parts of digestive tract
CPT/HCPCS: 0240U; 36415; 74177; 74177-26; 80048; 80053; 81001; 82947; 83690; 83735; 85025; 87324; 87493; 96361; 96365; 96366; 96367; 96372; 96375; 96376; 99285; 99285-25; A9270-GY; C9113; G0378; J0780; J1650; J1885; J2060; J2405; J2550; J3411; J3475; J3480; J3490; J7030; J7040; J7042